=== PATIENT | female | born 1985 | race Caucasian/White ===

== ENCOUNTER 2023-06-12 14:37 | Outpatient (OUT) | payer BC, SELFPAY | END 2023-06-12 14:38 | disposition home or self-care (01) | LOC: LAB 06-17 14:37 | PROVIDERS: Visit Provider Obstetrics & Gynecology | DX: N92.0 Excessive and frequent menstruation with regular cycle (principal) | CPT/HCPCS: 88305 ==

== ENCOUNTER 2023-06-14 10:10 | Outpatient (OUT) | payer BC, SELFPAY ==
--- NOTE | 2023-06-14 10:13 | US_ITS ---
The [address] [address] Patient Name: VAL TAY MRN: [id number] date: 1985 Sex: F Assigned Patient Location: Current Patient Location: Accession/Order Number: [id number] Exam Date: 06/14/2023 10:15 Report Date: 06/16/2023 07:33 At the request of: MAKI POP Procedure: US pelvis w/ transvaginal EXAMINATION: US pelvis w/ transvaginal HISTORY: PCOS E28.2 COMPARISON: No relevant comparison available. FINDINGS: Transabdominal and transvaginal images The uterus is normal in size, contour and myometrial echotexture measuring 9.8 x 5 0.5 to 4.2 cm, anteverted. No focal myometrial mass. Areas of anechoic echogenicity in the cervix, nabothian cysts are favored. The endometrium measures 10.4 mm, normal. The right ovary is normal measuring 2.2 x 2.5 x 2.9 cm. Normal color and Doppler flow. Scattered areas of anechoic echogenicity measuring up to 1.6 cm, follicles and/or simple cysts The left ovary is normal measuring 2.9 x 2.8 x 1.3 cm. Normal color and Doppler flow. Scattered subcentimeter follicles US/US pelvis w/ transvaginal IMPRESSION: Normal ovarian morphology Electronically authenticated by: SHANA BRADY Date: 06/16/2023 07:33
[2023-06-14 10:58] LABS: Basophils Percent Auto 0.3 % (0.2-2.0); Eosinophils Absolute Auto 0.1 10^3/uL (0.0-0.7); Eosinophils Percent Auto 1.3 % (0.9-7.0); Hematocrit 35.4 % (36.0-48.0); Immature Granulocytes Abs Auto 0.02 10^3/uL (0.00-0.03); Immature Granulocytes Pct Auto 0.2 % (0.0-0.5); Lymphocytes Absolute Auto 1.2 10^3/uL (1.2-3.8); Lymphocytes Percent Auto 12.8 % (20.5-60.0); Mean Corpuscular HGB Conc 28.2 g/dL (29.9-35.2); Mean Corpuscular Hemoglobin 23.1 pg (26.7-34.0); Mean Corpuscular Volume 81.8 fL (81.0-99.0); Mean Platelet Volume 9.9 fL (9.5-13.5); Monocytes Absolute Auto 0.6 10^3/uL (0.3-0.8); Monocytes Percent Auto 6.5 % (1.7-12.0); Neutrophils Absolute Auto 7.6 10^3/uL (1.4-6.5); Neutrophils Percent Auto 78.9 % (43.0-75.0); Platelet Count 323 10^3/uL (150-450); Red Blood Count 4.33 10^6/uL (4.20-5.40); Red Cell Distribution Width 17.1 % (11.0-15.0); White Blood Count 9.6 10^3/uL (4.0-11.0)
[2023-06-14 11:13] LABS: Estimated Average Glucose 94 mg/dL; Glycohemoglobin A1C 4.9 % (4.5-6.2)
[2023-06-14 11:48] LABS: Free T4 0.88 ng/dL (0.76-1.46)
[2023-06-14 12:16] LABS: HCG Quantitative <1 mIU/mL
[2023-06-15 08:08] LABS: FSH 6.2 mIU/mL (.); Luteinizing Hormone(LH) 33.5 mIU/mL (.)
[2023-06-19 16:09] LABS: DHEA, Serum 137 ng/dL (31-701)
== END 2023-06-14 10:11 | disposition home or self-care (01) ==
LOC: US 10:10
PROVIDERS: Visit Provider Obstetrics & Gynecology
DX: E28.2 Polycystic ovarian syndrome (principal); D89.89 Other specified disorders involving the immune mechanism, not elsewhere classified
CPT/HCPCS: 36415; 76830; 76856; 82626; 82627; 83001; 83002; 83036; 84439; 84443; 84702; 85025

== ENCOUNTER 2025-03-20 07:37 | Emergency (ER) | payer OTHER, SELFPAY ==
--- OUTSIDE RECORDS SUMMARY | 2024-03-01 09:15 | XMS_ITS ---
Author Organization [facility] in [place] Address [address] [place] [address] Care Team Providers Care Strapper Name Role Phone Bailee Riojas Primary Care Provider REASON FOR VISIT Tele visit for anxiety/depression. Stopped paxil 1 month ago. Just stopped filling it Medications Medication SIG (Take, Route, Frequency, Duration) Notes Start Date End Date Status Diclofenac Sodium 75 MG 1 tablet Orally Twice a day; Duration: 30 days 08/22/2022ctiveHydroxychloroquine Sulfate 200 MGas directed OrallyActiveFerrous Sulfate 325 (65 Fe) MG1 tablet Orally Three times a Week; Duration: 30 days 12/02/2022ctiveErgocalciferol 1.25 MG (75080 UT)1 capsule OrallyActive Social History Tobacco Use: Social History Observation Description Date Details (start date - stop date) Former Smoker NA - 06/22/2022 Tobacco Use/Smoking Question Answer Notes Patient is a former smoker When did you stop smoking?06/22/2022UDIT-C (Standard) Question Answer Notes Did you have a drink containing alcohol in the p ast year? Yes How often did you have six or more drinks on one occasion in the past year?Never (0 point)How many drinks did you have on a typical day when you were drinking in the past year?1 or 2 drinks (0 point)How often did you have a drink containing alcohol in the past year?Monthly or less (1 point)Bvcoai7TpqipfrjrjgqkpUbxxryel Problems Problem Type SNOMED Code ICD Code Onset Dates Problem Status W/U Status Risk Notes Problem Mixed anxiety and de pressive disorder ([id number]) Anxiety and depression (F41.8) Activeconfirmed Encounters Encounter Location Date Provider Diagnosis [facility] [address] [place] [address] 03/01/2024 Bailee Riojas Anxiety and depression F41.8 Assessments Encounter Date Diagnosis (ICD Code) Assessment Notes Treatment Notes Treatment Clinical Notes Section Notes 03/01/2024 Anxiety and depression (ICD-10 - F41.8) Plan Of Treatment No Information Progress Notes * Sue WILLARD LDOB:[birth year] (39 yo F)Acc No.[id number]:03/01/2024 UNLOCKED PROGRESS NOTE Progress Note Patient: Sue GARCIA :?Bailee Riojas ([facility]), CNPDOB:1985 ???Age:38 Y???Sex:FemaleDate:03/01/2024hone:[phone]:[address] [place], [place]-[address] Subjective: * Chief Complaints: * 1 . Tele visit for anxiety/depression. Stopped paxil 1 month ago. Just stopped filling it. * HPI: ???General:? mom has cancer homeless now, living with co worker and brother house working at [employer]. * Medical History: O ther cough, COVID-19 virus infection, History of kidney stones, Dysuria, Kidney stones, Wellness examination, Pleurisy, Other specified arthritis, unspecified site, Acute chest wall pain, Pneumonia, Shingles, Cigarette smoker, Hypertension, Allergic conjunctivitis, bilateral, Hypokalemia, Other specified postprocedural states, Narcotic dependence, in remission, Non-neuropathic heredofamilial amyloidosis. * Surgical History: C section/Fallopian tubes removed , Kidney stone removal . * Hospitalization/Major Diagno stic Procedure: d enies . * Family History: F ather: alive 62 yrs. M other: alive 57 yrs, LUNG CANCER. B rother(s): alive. S ister(s): alive. S on(s): alive. D aughter(s): alive, arthritis. 2 brother(s) , 1 sister(s) - healthy. 1 son(s) , 2 daughter(s) - healthy. . * Social History: ???Tobacco Use:?Tobacco Use/Smoking?Patient is a?former smoker ?When did you stop smoking??06/22/2022 ???Drug/Alcohol:?AUDIT-C (Standard)?Did you have a drink containing alcohol in the past year??Yes ?How often did you have six or more drinks on one occasion in the past year??Never (0 point) ?How many drinks did you have on a typical daywhen you were drinking in the past year??1 or 2 drinks (0 point) ?How often did you have a drink containing alcohol in the past year?? Monthly or less (1 point) ?Points?1 ?Interpretation?Negative * Medications: T aking Diclofenac Sodium 75 MG Tablet Delayed Release 1 tablet Orally Twice a day , Taking Ergocalciferol 1.25 MG (11677 UT) Capsule 1 capsule Orally , Taking Ferrous Sulfate 325 (65 Fe) MG Tablet 1 tablet Orally Three times a Week , Taking Hydroxychloroquine Sulfate 200 MG Tablet as directed Orally , Discontinued Amoxicillin-Pot Clavulanate 875-125 MG Tablet 1 tablet Orally every 12 hrs , Discontinued Benzonatate 200 MG Capsule 1 capsule as needed Orally Three times a day , Discontinued predniSONE 20 MG Tablet 2 tablet Orally Once a day , Medication List reviewed and reconciled with the patient Objective: * Vitals: Assessment: * Assessment: 1.?Anxiety and depression - F41.8 (Primary)??? Plan: * Treatment: * * Electronic signature of Bailee Riojas NP, FOOD PRODUCTION MANAGER.UNDERCOVER [id number] on 03/20/2025 at 08:10 AM ESTSign off status: PendingVisit Status:?N/S N/C (No Show/No Charge) * Provider: Faviola Riojas ([facility]) UNDERCOVER AGENT Date: 05/02/2023 Generated for Printing/Faxing/eTransmitting on:?03/20/2025 08:10 AM EST History and Physical Notes * HPI (History of Present Illness) CategorySub-CategoryDetailNotesCategory NotesGeneral mom has cancer homeless now, living with co worker and brother house working at [employer] denies SI
--- OUTSIDE RECORDS SUMMARY | 2025-03-09 05:11 | XMS_ITS | Continuity of Care Document ---
Author Organization [facility] Address [address] [place] [address] Phone Care Team Providers Care Manager Work Name Role Phone Rodo Tomlin Unavailable Unavailab le Allergies, Adverse Reactions, Alerts Substance Reaction Status Criticality No Known Allergies Active No Inform ation Medications Medication Instructions Dosage Effective Dates (start - stop) Status Comments trazodone 50 mg tablet take 1 tablet by oral route every day after meals 50 MG - Active ferrous sulfate 325 mg (65 mg iron) tablet take 1 tablet by oral route every day 325 MG - Active Remeron 15 mg tablet take 1 tablet by or al route every day before bedtime 15 MG - Active Vivitrol 380 mg intramuscular suspension,extended release inject 4 milliliter by intramuscular route every 4 weeks 380 MG - Active F10.20 duloxetine 60 mg capsule,delayed release take 1 capsule by oral route every day 60 MG - Active naltrexone 50 mg tablet take 1 tablet by oral route every day 50 MG - Active propranolol 10 mg tablet take 1 tablet by oral route 2 times every day 10 MG - Active Procedures Procedure Date OFFICE/OUTPATIENT VISIT, EST DIAST BP> = 90 MM HG SYST BP >=130-139MM HG MED LIST DOCD IN [facility] RVW MEDS BY RX/DR IN [facility] Tobacco User Not Consuled Pt inelig neg scrn depres OFFICE/OUTPATIENT VISIT, EST Bp scrn perf rec interval DIAST BP < 80 MM HG SYST BP >=130-139MM HG MED LIST DOCD IN [facility] RVW MEDS BY RX/DR IN [facility] PT TOBACCO USE DONE RCVD TLK Pt inelig neg scrn depres DRUG TEST PRSMV DIR OPT OBS Injection, Vivitrol Naltrexone, 1mg PSYTX PT&/FAMILY 60 MINUTES PSYTX PT&/FAMILY 60 MINUTES PSYTX PT&/FAMILY 60 MINUTES PSYTX PT&/FAMILY 60 MINUTES OFFICE/OUTPATIENT VISIT, NEW Bp scrn perf rec interval DIAST BP < 80 MM HG SYST BP < 130 MM HG MED LIST DOCD IN [facility] RVW MEDS BY RX/DR IN [facility] Tobacco User Not Consuled Pt inelig neg scrn depres Injection, Vivitrol Naltrexone, 1mg DRUG TEST PRSMV DIR OPT OBS PSYTX PT&/FAMILY 60 MINUTES PSYTX PT&/FAMILY 60 MINUTES ROUTINE VENIPUNCTURE ROUTINE VENIPUNCTURE OFFICE/OUTPATIENT VISIT, EST PSYTX PT&/FAMILY 60 MINUTES PSYTX PT&/FAMILY 60 MINUTES Depo Provera 1 Ml PREV VISIT, EST, AGE 18-39 Bp scrn perf rec interval DIAST BP < 80 MM HG SYST BP < 130 MM HG MED LIST DOCD IN [facility] RVW MEDS BY RX/DR IN [facility] PT TOBACCO USE DONE RCVD TLK Oral Hygiene Instruction Extract; Erupted Th/exposted Rt 025 Intraoral-complete Series (bw) Oral Hygiene Instruction Prophylaxis Adult High Risk Nutrit Couns For Control Of Bonesteel Dis Apr Oral Hygiene Instruction Comp Oral Eval New/estab Patient 2023 Resin Composite 2s; Posterior 4 Intraoral-periapical 1st Film 4 Bitewig-single Film Oral Hygiene Instruction Limited Oral Eval NEW MEDICAID SPECIMEN HANDLING URINE TEST Advance Directives Directive Yes / No Effective Date File Name No Information Encounters Encounter Description Practice Location Reason(s) For Visit Diagnoses Date Provider Providers Copied on Encounter [facility], [address] [place] [address], [id number] , [place] tel:[phone] [facility] [place] [facility] [place] No Information 5 Andrade Koehler. [address] [place] [address], [id number] , [place]. tel:+ [phone] OFFICE/OUTPA TIENT VISIT, [facility], [address] [place] [address], [id number] , [place] tel:+ [phone] [facility] contraception (chief complaint) Body mass index [BMI] 25.0-25.9, adultEncounter for management and injection of depo-ProveraBod y mass index [BMI] 26.0-26.9, adult Jan- 5 Evert Natarajan. [address] [place] [address], [id number] , [place]. tel:+ [phone] OFFICE/OUTPA TIENT VISIT, [facility], [address] [place] [address], [id number] , [place] tel: [phone] [facility] Crystal # 2 (chief complaint) Body mass index [BMI] 23.0-23.9, adultSevere alcohol use disorder Oct- 5 Plank DO Bernardino. [address] [place] [address], [id number] , [place]. tel: [phone] PSYTX PT&/FAMILY 60 MINUTES [facility], [address] [place] [address], [id number] , [place] tel: [phone] [facility] Generalized Anxiety Disorder Oct-1 0- 5 Warren BAUERW-S [place]. [address] [place] [address], [id number], [place]. tel: [phone] PSYTX PT&/FAMILY 60 MINUTES [facility], [address] [place] [address], [id number] , [place] tel: [phone] [facility] Generalized Anxiety Disorder Oct-0 5 Warren [employer] TE[employer]ER-S [place]. [address] [place] [address], [id number], [place]. tel: [phone] PSYTX PT&/FAMILY 60 MINUTES [facility], [address] [place] [address], [id number] , [place] tel: [phone] [facility] Generalized Anxiety Disorder Sep-2 5 Warren [employer] TE[employer]ER-S [place]. [address] [place] [address], [id number], [place]. tel: [phone] PSYTX PT&/FAMILY 60 MINUTES [facility], [address] [place] [address], [id number] , [place] tel: [phone] [facility] Generalized Anxiety Disorder Sep-1 5 Warren [employer] TE[employer]ER-S [place]. [address] [place] [address], [id number], [place]. tel: [phone] OFFICE/OUTPA TIENT VISIT, [facility], [address] [place] [address], [id number] , [place] tel: [phone] [facility] Vivitrol (chief complaint)UDS (chief complaint)Katie trol Injection (chief complaint) Severe alcohol use disorderModerat e opioid use disorderBody mass index [BMI] 22.0-22.9, adultFood insecurity Sep-1 - 5 Adriana Contreras. [address], [place], [id number] , [place]. tel:+ [phone] [facility], [address] [place] [address], [id number] , [place] tel: [phone] [facility] No Information Sep-1 0- 5 Andrade Koehler. [address], [place], [id number] , [place]. 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 [address] [place] [address], [id number], [place]. tel: [phone] PSYTX PT&/FAMILY 60 MINUTES [facility], [address] [place] [address], [id number] , [place] tel: [phone] Behavorial Health Generalized Anxiety Disorder Sep-0 5 [facility] Bernard[place]. [address] [place] [address], [id number], [place]. tel: [phone] [facility], [address] [place] [address], [id number] , [place] tel:+ [phone] [facility] [place] [facility] [place] No Information Sep-0 5 Andrade Koehler. [address] [place] [address], [id number] , [place]. tel: [phone] [facility], [address] [place] [address], [id number] , [place] tel:+ [phone] [facility] Lab draw (chief complaint) Severe alcohol use disorderFood insecurity Sep-0 - 5 Andrade Koehler. [address] [place] [address], [id number] , [place]. tel: [phone] OFFICE/OUTPA TIENT VISIT, EST [facility], [address] [place] [address], [id number] , [place] tel: [phone] [facility] Sick visit (chief complaint)depr ession (chief complaint)URI (chief complaint) Body mass index [BMI] 21.0-21.9, adultDepression Severe alcohol use disorderHot flashesAcute URI 5 nAdrade Koehler. [address] [place] [address], [id number] , [place]. tel: [phone] PSYTX PT&/FAMILY 60 MINUTES [facility], [address] [place] [address], [id number] , [place] tel: [phone] [facility] Depression 5 Warren Lebron. [address] [place] [address], [id number], [place]. tel: [phone] PSYTX PT&/FAMILY 60 MINUTES [facility], [address] [place] [address], [id number] , [place] tel: [phone] [facility] Depression 5 Warren Lebron. [address] [place] [address], [id number], [place]. tel: [phone] PREV VISIT, EST, AGE 18-39 [facility], [address] [place] [address], [id number] , [place] tel: [phone] [facility] annual exam (chief complaint) Encounter for gynecological examination (general) (routine) without abnormal findingsEncount er for screening for HPV- STD High risk heterosexual behavior- STD screenBody mass index [BMI] 21.0-21.9, adultEncounter for management and injection of depo-ProveraBod y mass index [BMI] 22.0-22.9, adult 5 Evert RONAN Natarajan. [address] [place] [address], [id number] , [place]. tel: [phone] [facility], [address] [place] [address], [id number] , [place] tel: [phone] Dental Clinic Encounter for screening for dental disorders 5 Noe ESPITIA Yu. . tel: [phone] [facility], [address] [place] [address], [id number] , [place] tel: [phone] Dental Clinic Encounter for screening for dental disorders 4 Noe DDS Yu. . tel: [phone] [facility], [address] [place] [address], [id number] , [place] tel: [phone] Dental Clinic Filling (chief complaint) Encounter for screening for dental disorders 4 [facility] OMKAR Yu. . tel: [phone] [facility], [address] [place] [address], [id number] , [place] tel: [phone] Dental Clinic ER (chief complaint) Encounter for screening for dental disorders 4 [facility] . tel: [phone] [facility], [address] [place] [address], [id number] , [place] tel: [phone] [facility] No Information 1 Marcus Andrew. [address] [place] [address], [id number] , [place]. tel: [phone] Family History Family Member Type Diagnosis Age At Onset Mother Problem Alive and well Father Problem Alive and well Payers Payer name Insurance type Covered democrat ID Authoriza timatthew(s) Medel Medicaid [facility] [id number] Medicaid Wrap - [facility] [id number] Social History Type Description Quantity Date Captured Comments Sex Female Smoking Status No Information Sexual Orientation Straight or heterosexual Gender Identity Female Chief Complaint And Reason For Visit No Information Reason For Referral Reason For Referral No Information Plan Of Treatment Date Type Action Status Goal Unhealthy drug use screening . Due on due Goal Hep A. Due on du e Goal HPV. Due on due Goal Tdap. Due on due Goal RLP. Due on due Goal Influenza vaccine. Due on No due Goal Hepatitis C screening. Due o n due Goal Depression screening. Due on due Goal PRAPARE ASSESSMENT. Due on N due Goal Tdap Vaccine. Due on 2024 due Goal Dietary manageme nt education, guidance, and counseling completed Goal Hep A. Due on du e Goal Tdap. Due on due Goal Influenza vaccine. Due on Oc due Goal Tdap Vaccine. Due on 2024 due Goal RLP. Due on due Goal Unhealthy drug use screening . Due on due Goal Depression screening. Due on due Goal PRAPARE ASSESSMENT. Due on O due Goal Hepatitis C screening. Due o n due Goal HPV. Due on due Goal Lifestyle education regardin g diet completed Goal Tobacco cessation counseling completed Goal RLP. Due on due Goal HPV. Due on due Goal Influenza vaccine. Due on Oc due Goal Tdap Vaccine. Due on 2024 due Goal Tdap. Due on due Goal Unhealthy drug use screening . Due on due Goal Hepatitis C screening. Due o n due Goal Depression screening. Due on due Goal PRAPARE ASSESSMENT. Due on O due Goal Depression screening. Due on due Goal Hep A. Due on du e Goal Tdap Vaccine. Due on 2024 due Goal Unhealthy drug use screening . Due on due Goal PRAPARE ASSESSMENT. Due on O due Goal Hepatitis C screening. Due o n due Goal RLP. Due on due Goal Tdap. Due on due Goal Influenza vaccine. Due on Oc due Goal HPV. Due on due Goal Tdap. Due on due Goal Depression screening. Due on due Goal Hep A. Due on du e Goal PRAPARE ASSESSMENT. Due on S due Goal Hepatitis C screening. Due o n due Goal HPV. Due on due Goal Tdap Vaccine. Due on 2024 due Goal Influenza vaccine. Due on Se due Goal RLP. Due on due Goal Unhealthy drug use screening . Due on due Goal Hepatitis C screening. Due o n due Goal RLP. Due on due Goal Depression screening. Due on due Goal PRAPARE ASSESSMENT. Due on S due Goal Tdap. Due on due Goal Unhealthy drug use screening . Due on due Goal Influenza vaccine. Due on due Goal Hep A. Due on du e Goal Tdap Vaccine. Due on 2024 due Goal HPV. Due on due Goal Hep A. Due on du e Goal PRAPARE ASSESSMENT. Due on S due Goal Hepatitis C screening. Due o n due Goal Unhealthy drug use screening . Due on due Goal RLP. Due on due Goal Tdap Vaccine. Due on 2024 due Goal Influenza vaccine. Due on due Goal Tdap. Due on due Goal Depression screening. Due on due Goal HPV. Due on due Goal Lifestyle education regardin g diet completed Goal Influenza vaccine. Due on due Goal RLP. Due on due Goal Tdap Vaccine. Due on 2024 due Goal Tdap. Due on due Goal HPV. Due on due Goal Unhealthy drug use screening . Due on due Goal PRAPARE ASSESSMENT. Due on S ep due Goal Depression screening. Due on due Goal Hepatitis C screening. Due o n due Goal Influenza vaccine. Due on Se due Goal PRAPARE ASSESSMENT. Due on S ep due Goal Tdap. Due on due Goal Depression screening. Due on due Goal Unhealthy drug use screening . Due on due Goal Hepatitis C screening. Due o n due Goal RLP. Due on due Goal Tdap Vaccine. Due on 2024 due Goal HPV. Due on due Goal Hep A. Due on du e Goal Hepatitis C screening. Due o n due Goal Influenza vaccine. Due on Se due Goal HPV. Due on due Goal Tdap. Due on due Goal PRAPARE ASSESSMENT. Due on S due Goal Tdap Vaccine. Due on 2024 due Goal Unhealthy drug use screening . Due on due Goal Depression screening. Due on due Goal RLP. Due on due Goal Hep A. Due on du e Goal Influenza vaccine. Due on Se due Goal PRAPARE ASSESSMENT. Due on S due Goal Hepatitis C screening. Due o n due Goal Tdap Vaccine. Due on 2024 due Goal RLP. Due on due Goal HPV. Due on due Goal Tdap. Due on due Goal Unhealthy drug use screening . Due on due Goal Depression screening. Due on due Goal Hepatitis C screening. Due o n due Goal PRAPARE ASSESSMENT. Due on A due Goal Depression screening. Due on due Goal Influenza vaccine. Due on due Goal RLP. Due on due Goal Unhealthy drug use screening . Due on due Goal HPV. Due on due Goal Tdap Vaccine. Due on 2024 due Goal Tdap. Due on due Goal Dietary manageme nt education, guidance, and counseling completed Goal Tobacco cessation counseling completed Goal Tdap. Due on due Goal Unhealthy drug use screening . Due on due Goal PRAPARE ASSESSMENT. Due on A due Goal Hepatitis C screening. Due o n due Goal Tdap Vaccine. Due on 2024 due Goal HPV. Due on due Goal Influenza vaccine. Due on due Goal Depression screening. Due on due Goal RLP. Due on due Goal Hep A. Due on du e Goal RLP. Due on due Goal Depression screening. Due on due Goal Influenza vaccine. Due on due Goal PRAPARE ASSESSMENT. Due on A due Goal HPV. Due on due Goal Hepatitis C screening. Due o n due Goal Tdap Vaccine. Due on 2024 due Goal Unhealthy drug use screening . Due on due Goal Tdap. Due on due Goal Tdap. Due on due Goal Influenza vaccine. Due on due Goal RLP. Due on due Goal Hepatitis C screening. Due o n due Goal HPV. Due on due Goal PRAPARE ASSESSMENT. Due on A due Goal Depression screening. Due on due Goal Unhealthy drug use screening . Due on due Goal Tdap Vaccine. Due on 2024 due Goal Tobacco cessation counseling completed Goal Dietary manageme nt education, guidance, and counseling completed Goal Hep A. Due on du e Goal Depression screening. Due on due Goal Hepatitis C screening. Due o n due Goal Tdap. Due on due Goal PRAPARE ASSESSMENT. Due on due Goal Tdap Vaccine. Due on 2023 due Goal HPV. Due on due Goal RLP. Due on due Goal Influenza vaccine. Due on due Goal Unhealthy drug use screening . Due on due Goal PRAPARE ASSESSMENT. Due on due Goal Unhealthy drug use screening . Due on due Goal RLP. Due on due Goal Hepatitis C screening. Due o n due Goal Influenza vaccine. Due on due Goal HPV. Due on due Goal Depression screening. Due on due Goal Tdap. Due on due Goal Tdap Vaccine. Due on 2023 due Goal Tdap. Due on due Goal Hepatitis C screening. Due o n due Goal Unhealthy drug use screening . Due on due Goal PRAPARE ASSESSMENT. Due on due Goal RLP. Due on due Goal Hep A. Due on du e Goal Tdap Vaccine. Due on 2023 due Goal Influenza vaccine. Due on due Goal Depression screening. Due on due Goal HPV. Due on due Appointment Sue Willard BOOKED History Of Present Illness Encounter Date Complaint History Of Prese nt Illness contraception Discussed contra ception with client. The client is currently using tubal ligation. The client is not currently . Comments: Wilmer abdi is here for Depo Provera. Doing well and desires to continue at this time. Does not desire a in the near future. Crystal # 2 Pt here for Katie trol # 2 in Rt Side. Denies cravings and DOC is ETOH. Has 82 days sober. Sees Collins here for counseling. UDS neg all subs and patient is on the depo for B.C.RWeidmanLPNPt rec Crystal # 2 in RUOG. 380 mg vivitrol in RUOG using 1.5 needle. No blood on aspiration. Pt tolerated well.Kit Lot [id number] 05/22/2027Vial [id number] 05/22/2027 UDS Slight line for THC deemed negative, negative all other substances.//ALBANIA Doshi Vivitrol Patient is here for first vivitrol injection. Patient states DOC was ETOH, last used October 13, 2024. Patient denies cravings. Attends counseling here and at [place]. Patient had tubal ligation and receives depo. Patient denies other concerns at this time. Patient admits to vaping daily. Denies use of tobacco, alcohol, and drugs.//ALBANIA Doshi Vivitrol Injection 380 mg Vivitr ol given IM LUOQ LG using a 1 1/2 needle. No blood on aspiration, patient tolerated well.//ALBANIA Doshi Lab draw Presents for lab draw. Lab draw from right AC x 1 attempt, tolerated well, pressure dressing to area. Noa Giang RN Sick visit Patient presents for sick visit. Patient notes her symptoms started yesterday morning. C/o sore throat, itchy/dry cough, headache. Patient wants strep swab. Wants thyroid checked - [facility] [place].Currently at [facility] and attending counseling for alcohol use disorder. Taking Naltrexone daily, plans to start Vivitrol via [facility]. Believes medicatio is working well. While drawing labs for vivitrol would also like to have TSH checked as she has experienced hot flashes recently. Geo HICKMAN depression This is an initi al visit. Related symptoms are fairly controlled. The client presents with anxious/fearful thoughts and depressed mood but denies thoughts of or suicide. The depression is aggravated by alcohol use. The client's relieving factors are medication. Additional information: would like refill with no dosage changes Geo HICKMAN. URI The symptoms beg an 1 day ago. The symptoms have remained unchanged. The client presents with cough, pharyngitis and rhinorrhea. Risk factors include sick contacts (longterm). The client denies any aggravating factors. Interventions that have been tried have not provided any relief. The illness is associated with malaise. The client denies dyspnea, neck stiffness and rash. Additional information: Geo HICKMAN. annual exam Currently pregna nt: no. : 3. Parity: Term: 2. Pre-Term: 1. Livin.Client is not contemplating . The client states using tubal ligation for control. Last LMP was 10/24/2024. Patient's menses is regular with normal flow with a frequency of every 28 days. Negative for dysmenorrhea and menorrhagia. Negative for: breast discharge, breast lump(s), breast pain and breast self exam. Menopausal symptoms positive for: night sweats. The client does use tobacco. Tobacco cessation has been discussed. The client formerly drank alcohol. Additional information: Patient is here for annual exam. She is currently living at [facility] for 1 week as she has recently gotten herself sober from alcohol. States she had her 5yr child taken away and she was melody drinking. She gets hot flashes, but her cycles come monthly. States her mother went through menopause in her late 30's early 40's. She is interested in trying Depo Provera to see if some of her symptoms resolve. she is a smoker and cannot take combination BCM. Filling Continue with zion roberts ER Functional Status Date Functional Assessmen t No Information Instructions Date Instruction Additional Infor javier May continue Depo Pr overa. Encouraged calcium 1000mg QD. Recommend condoms for back up BC and to prevent STDs Related to Encounter for management and injection of depo-Provera Dietary management e ducation, guidance, and counseling Related to Body mass index [BMI] 25.0-25.9, adult Giving encouragement to exercise Related to Body mass index [BMI] 25.0-25.9, adult Lifestyle education regarding di et Related to Body mass index [BMI] 23.0-23.9, adult Giving encouragement to exercise Related to Body mass index [BMI] 23.0-23.9, adult Lifestyle education regarding di et Related to Body mass index [BMI] 22.0-22.9, adult Giving encouragement to exercise Related to Body mass index [BMI] 22.0-22.9, adult 1. Rest and hydrateP ush fluids2. Medications:OTC medications for symptoms form list approved by [employer]3. Follow up in 1 week if symptoms have not improved4. Seek immediate medical attention for chest pain or shortness of breath.5. Avoid smoking and or cigarette smoke6. bland well balanced diet Related to Acute URI 1. Continue with cou nseling as required2. Follow up 2 WEEKS, MAY RETURN SOONER IF INJECTION ARRIVES SOONE3. [facility] with any issues prior to next appointment4. Avoid any drug or alcohol use5. Practice good sleep hygiene6. Well balanced diet7. Exercise 3-5 days per week 30 minutes per day8. YOU ARE AT INCREASED RISK FOR OVERDOSE WITH OPIATE USE WHILE ON VIVITROL9. Please wear your Vivitrol medical alert bracelet of dog tag at all times. Related to Severe alcohol use disorder 1. thyroid labs prio r to 10am2. Will contact with results Related to Hot flashes 1. Take medications as prescribed.2. Continue or consider counseling3. Exercise regularly4. practice good sleep hygiene.5. Well balanced healthy diet6. CALL [phone] FOR SUICIDAL OR HOMICIDAL THOUGHTS7. Follow up: 3 month(s)8. Avoid alcohol and drug use Related to Depression Giving encouragement to exercise Related to Body mass index [BMI] 21.0-21.9, adult Dietary management e ducation, guidance, and counseling Related to Body mass index [BMI] 21.0-21.9, adult May continue Depo Pr overa. Encouraged calcium 1000mg QD. Recommend condoms for back up BC and to prevent STDs Related to Encounter for management and injection of depo-Provera May continue Depo Pr overa. Encouraged calcium 1000mg QD. Recommend condoms for back up BC and to prevent STDs Related to - STD screen Encouraged good diet marta intake, exercise and healthy lifestyle choices. Recommend daily multi-vitamin with Folic acid. Understands the need for non-violent partners in a consensual relationship. Patient does not desire a in the near future. Reviewed control options for prevention and desires to continue using BTL for prevention of . Does want to try Depo Provera to see if it will help with hot flashes. Related to Encounter for gynecological examination (general) (routine) without abnormal findings Dietary management e ducation, guidance, and counseling Related to Body mass index [BMI] 21.0-21.9, adult Assessments Type Assessment Date No Information Patient Care Teams Name Effective Dates (start - stop) Status Members No Information
[2025-03-20 07:41] VITALS: BP 144/93; PULSE 139; TEMP 37.3; O2SAT 97; BMI 25.6
[2025-03-20 07:47] VITALS: PULSE 115
[2025-03-20 07:50] VITALS: PULSE 115
--- OUTSIDE RECORDS SUMMARY | 2025-03-20 08:09 | XMS_ITS | Patient Health Record ---
Author Organization [facility] in [place] Address [address] [place] [address] Care Team Providers Care Sign Painter Apprentice Name Role Phone Bailee Riojas Primary Care Provider [phone] Allergies No Known Allergies Reason For Referral No Information Medications Medication SIG (Take, Route, Frequency, Duration) Notes Start Date End Date Status Amoxicillin-Pot Clavulanate 875-125 MG 1 tablet Orally every 12 hrs; Duration: 10 days 5ActiveCymbalta 60 MG1 capsule Orally Once a dayActivebusPIRone HCl 10 MG1 tablet Orally Twice a dayActiveHydroxychloroquine Sulfate 200 MGas directed OrallyActivehydrOXYzine HCl 25 MGTAKE 1 TABLET BY MOUTH TWICE A DAY NEEDED; Duration: 30ActiveBenzonatate 200 MG1 capsule as needed Orally Three times a day; Duration: 7 days5Active Social History Tobacco Use: Social History Observation Description Date Details (start date - stop date) Former Smoker NA - 06/22/2022 Tobacco Use/Smoking Question Answer Notes Patient is a former smoker When did you stop smoking?06/22/2022lcohol Screen (Audit-C) Question Answer Notes Did you have a drink containing alcohol in the p ast year? Yes How often did you have 6 or more drinks on one occasion in the past year?Never (0 point)How many drinks did you have on a typical day when you were drinking in the past year?1 or 2 drinks (0 point)How often did you have a drink containing alcohol in the past year?Monthly (2 points)Nrdopd8CjosmkwmqzyzagXycjplhgSYGHX-C (Standard) Question Answer Notes Did you have [...] in the past year?Monthly or less (1 point)Gyxlye4XcivecacwsywmeNdxmnzeq Problems Problem Type SNOMED Code ICD Code Onset Dates Problem Status W/U Status Risk Notes Problem Iron deficiency anemia (55754752 ) Iron deficiency anemia, unspecified (D50.9) 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 (42434834)Hypokalemia (E87.6)ActiveconfirmedProblemAllergic arthritis (32921178) Other specified arthritis, unspecified site (M13.80)ActiveconfirmedProblem Calculus of kidney (84409290)Calculus of kidney (N20.0)ActiveconfirmedProblem Pleurisy (861400061)Pleurisy (R09.1)ActiveconfirmedProblemDysuria (07729447) Dysuria (R30.0)ActiveconfirmedProblemHypertension (77306936)Hypertension (I10) ActiveconfirmedProblemCigarette smoker (56813575)Cigarette smoker (F17.210) ActiveconfirmedProblemPneumonia (602771425)Pneumonia (J18.9)Activeconfirmed ProblemHistory of calculus of kidney (644098707)History of kidney stones (Z87.442)ActiveconfirmedProblemShingles (9026383)Shingles (B02.9)Activeconfirmed ProblemAcute atopic conjunctivitis (91794378)Allergic conjunctivitis, bilateral (H10.13)ActiveconfirmedProblemSuicidal ideation (1385241)Suicidal ideation (R45.851)ActiveconfirmedProblemAnnual wellness visit (280124057943197)Wellness examination (Z00.00)ActiveconfirmedProblemMajor depressive disorder (728263461) Major depressive disorder (F32.9)ActiveconfirmedProblemChest pain (13863881) Acute chest wall pain (R07.89)ActiveconfirmedProblemCyst of right ovary (17277624902816447)Unspecified ovarian cyst, right side (N83.201)Activeconfirmed ProblemPostprocedural states (437573269)Other specified postprocedural states (Z98.890)ActiveconfirmedProblemMixed anxiety and depressive disorder (487946031) Anxiety and depression (F41.8)ActiveconfirmedProblemOpioid dependence in remission (707763728)Narcotic dependence, in remission (F11.21)Activeconfirmed ProblemDisease caused by Severe acute respiratory syndrome coronavirus 2 (disorder) (382648341)COVID-19 virus infection (U07.1)ActiveconfirmedProblem Cough (finding) (60194729)Other cough (R05.8)Activeconfirmed Vital Signs Temperature 98.2 degrees Fahrenheit 03/30/2024 Blood pressure vjasqkdwc39 mm Hg07/23/20249645Wfxbcq24 in07/23/2024lood pressure rstrqata567 mm Hg07/23/20243345Qfkbdq556 lbs07/23/2024BMI21.21 kg/m207/23/2024 Encounters Encounter Location Date Provider Diagnosis [facility] [address] [place] [address] 03/30/2024 Bailee Riojas [facility] [place] [address] 03/30/2024Pamela CramerAcute sinusitis J01.90[facility] [place] [address]/02/2025Pamela CramerBronchitis J40 Assessments Encounter Date Diagnosis (ICD Code) Assessment Notes Treatment Notes Treatment Clinical Notes Section Notes 03/30/2024 Acute sinusitis (ICD-10 - J01.90 ) 07/23/2024ronchitis (ICD-10 - J40) Plan Of Treatment Pending Test Test Name Order Date UA (URINALYSIS, COMPLETE) 12/12/2022 CT Chest w/o contrast 07/11/2022 URINE CULTURE 12/12/2022 C DIFF TOX PCR STOOL 12/12/2022 CBC W/AUTO DIFF 12/02/2022 COVID-19, Flu A+B IH 01/27/2024 Covid-19 PCR (CVDTBH) 11/10/2023 IRON 12/02/2022 STOOL CULTURE 12/12/2022 Insurance Providers Payer Name Payer Address Payer Phone Subscriber Number Group Number Insured Name Patient Relationship to Insured Coverage Start Date Coverage End Date [employer] [place] [employer] [address] [address] [place] [address] [phone] [id number] Sue Willard Self - patient is the insured 0 Medical (General) History Medical History History ICD Code Other cough R05.8 COVID-19 virus infection U07.1 History of kidney stones Z87.442 Dysuria R30.0 Kidney stones N20.0 Wellness examination Z00.00 Pleurisy R09.1 Other specified arthritis, unspecified s ite M13.80 Acute chest wall pain R07.89 Pneumonia J18.9 Shingles B02.9 Cigarette smoker F17.210 Hypertension I10 Allergic conjunctivitis, bilateral H10.1 3 Hypokalemia E87.6 Other specified postprocedural states Z9 8.890 Narcotic dependence, in remission F11.21 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
[2025-03-20 08:10] LABS: SARS-CoV-2 Ag NEGATIVE (NEGATIVE)
--- OUTSIDE RECORDS SUMMARY | 2025-03-20 08:10 | XMS_ITS | Encounter Summary ---
Author Organization [facility] Address [address] [place] [address] Care Team Providers Care Leaf Stripper Name Role Phone Bailee Riojas CNP Primary Care Provider + Source Comments In the event this information is protected by the Federal Confidentiality of Alcohol and Drug AbusePatient Records regulations: The Federal rules restrict any use of the information to criminally investigate or prosecute any alcohol or drug abuse patient.[facility] Reason for Visit * ReasonOnset DateCommentsRefill Likvqpm4203/16/2025 Encounter Details DateTypeDepartmentCare Team (Latest Contact Info)Dnpmsbyldjt16/24/2025Refill Rheumatology [address] [place] [address] Yanely Motta MD [address] [place] [address] Refill Request Social History Tobacco UseTypesPacks/DayYears UsedDateSmoking Tobacco: FormerCigarettes Smokeless Tobacco: Never Comments:Vapes occasionally Alcohol UseStandard Drinks/WeekCommentsNo0 (1 standard drink = 0.6 oz pure alcohol)PHQ-2AnswerDate RecordedPHQ-2 ycrxt154/30/2023Area Deprivation Index AnswerDate RecordedNational Score (1-100), lower number is lower risk83 02/20/2023State Score (1-10), lower number is lower mygw7713Data from: https://www.neighborhoodatlas.medicine.[facility].edu/. Last address used for prnwezguo[address]CommentsNoSex and Gender Information ValueDate RecordedSex Assigned at BirthNot on fileLegal BjdBbshuu08/02/2012 8:57 AM ESTGender IdentityNot on fileSexual OrientationNot on fileOccupationIndustry Job Start DateJob End DateCookNot on fileNot on fileNot on filedocumented as of this encounter Miscellaneous Notes * Telephone Encounter - Marlena Espinosa - 03/18/2025 9:24 AM EST Patient is scheduled with Dr Motta on 04/09/2025 * Telephone Encounter - Yanely Motta MD - 03/16/2025 6:08 PM EST Not seen since 05/2023. May schedule follow up phone/virtual or office visit with me or WARD ATTENDANT for refill. [facility] OFFER [facility] CLINIC (VIRTUAL/PHONE ONLY). 04/09/25 and 04/2025 open Otherwise, please defer medication refills to current provider Thank you. * Telephone Encounter - Mery Neff MA - 03/16/2025 9:08 AM EST Images from the original note were not included. Patient's request for medication is as follows: Requested Prescriptions Pending Prescriptions Disp Refills predniSONE (DELTASONE) 5 mg tablet 21 tablet 3 Sig: Day 1=6tabs with food, Day 2=5tabs, Day 3=4tabs, Day 4=3tabs, Day 5=2tabs, then take 1-2tabs daily thereafter, No NSAIDs on med I???m swollen so badly still I need prednisone to help me until I see you Apr 09 I made an appointment that was the earliest I could get in. Please Please approve the above prescription(s) to electronically send to pharmacy. Mery Neff MA Most recent Rheumatology visit: 06/02/2023 (with Yanely Motta) Last Bone Density on file: 12/24/2022 Rheumatology Care Team: None on file Recent Office Visits - This Specialty 06/02/2023 Rheumatoid arthritis of multiple sites with negative rheumatoid factor (HCC) Rheumatology Yanely Motta MD 11/11/2022 Rheumatoid arthritis of multiple sites with negative rheumatoid factor (HCC) Rheumatology Yanely Motta MD 05/03/2022 Rheumatoid arthritis of multiple sites with negative rheumatoid factor (HCC) Rheumatology Yanely Motta MD Upcoming Rheumatology Appointments - Next 365 Days Visit Type Date Time Department VIDEO SPEC EST [facility] Last Ophthalmology Check for Plaquenil (Hydroxychloroquine) Last OCT Macula Exam OCT MACULA CIRRUS OU (BOTH EYES) Exam End: 07/02/2021 10:17 AM (Final result) Narrative: Date of Procedure 07/02/2021. Interpretation Right Eye Normal without fluid. Left Eye Normal without fluid. Interval Change Right Eye Initial. Left Eye Initial. Last Visual Field Exam VISUAL FIELD 10-2 OU (BOTH EYES) Exam End: 07/02/2021 9:31 AM (Final result) Narrative: Date of Procedure 07/02/2021. Drivers License Examiner Information Heel Padder: Reliability Right Eye Good. Left Eye Good. Interpretation Right Eye Normal. Left Eye Normal. Interval Change Right Eye Initial. Left Eye Initial. CBC: Latest Ref Rng & Units 03/08/2024 03/08/2025 CBC WBC 3.70 - 11.00 k/uL 6.90 8.09 Hemoglobin 11.5 - 15.5 g/dL 10.8 14.0 Hematocrit 36.0 - 46.0 % 35.9 44.0 Platelet Count 150 - 400 k/uL 284 284 Vitamin D: Latest Ref Rng & Units 03/08/2024 03/08/2025 Vitamin D Vitamin D 25 Hydroxy 31.0 - 80.0 ng/mL 24.1 27.7 LFT: Latest Ref Rng & Units 03/08/2024 03/08/2025 CMP Sodium 136 - 144 mmol/L 142 139 Potassium 3.7 - 5.1 mmol/L 3.7 4.0 Chloride 98 - 107 mmol/L 105 103 CO2 22 - 30 mmol/L 25 25 Glucose 74 - 99 mg/dL 94 84 BUN 7 - 21 mg/dL 9 9 Creatinine 0.58 - 0.96 mg/dL 0.68 0.68 Calcium 8.5 - 10.2 mg/dL 9.8 9.8 AST 10 - 35 U/L 16 24 ALT 10 - 35 U/L 11 24 Alkaline Phosphatase 34 - 123 U/L 84 73 Hepatic Function: Creatinine: Latest Ref Rng & Units 03/08/2024 03/08/2025 Creatinine Creatinine 0.58 - 0.96 mg/dL 0.68 0.68 ESR/CRP: Latest Ref Rng & Units 03/08/2024 03/08/2025 ESR, WSR WSR 0 - 20 mm/hr 12 2 Latest Ref Rng & Units 03/08/2024 03/08/2025 CRP CRP <0.9 mg/dL 0.5 0.5 Uric Acid: None on file in the last 6 months Open Standing (Multiple Instance) Lab Orders None Open Future (Single Instance) Lab Orders Expected Expires Ordered COMPREHENSIVE METABOLIC PANEL [SQCMP] 06/07/25 03/09/26 03/09/25 Auth. provider: Yanely Motta MD Assoc. diagnoses: Elevated LFTs COMPLETE BLOOD COUNT [SQCBC] 06/07/25 03/09/26 03/09/25 Auth. provider: Yanely Motta MD Assoc. diagnoses: Anemia of chronic disease SEDIMENTATION RATE [SQWSR] 06/07/25 03/09/26 03/09/25 Auth. provider: Yanely Motta MD Assoc. diagnoses: Elevated sed rate, Elevated C-reactive protein (CRP) C-REACTIVE PROTEIN [SQCRP] 06/07/25 03/09/26 03/09/25 Auth. provider: Yanely Motta MD Assoc. diagnoses: Elevated sed rate, Elevated C-reactive protein (CRP) VITAMIN D 25 HYDROXY [SQVITD] 06/07/25 03/09/26 03/09/25 Auth. provider: Yanely Motta MD Assoc. diagnoses: Vitamin D deficiency documented in this encounter Plan of Treatment DateTypeDepartmentCare Team (Latest Contact Info)Yvfwjbbmxbq01/17/2026 11:40 AM [facility] [address] [place] [address] Yanely Motta MD [address] [place], [place] [phone] fu RA familial mediterrean fever elbow is oencvbj0306/07/2025 4:00 PM EDTResults Only Dee Dee [facility] Laboratory [address] [place], [place] [phone] LABSdocumented as of this encounter Visit Diagnoses Diagnosis Inflammatory arthritis Unspecified inflammatory polyarthropathy documented in this encounter Care Teams Team MemberRelationshipSpecialtyStart DateEnd Date Bailee Riojas CNP [address] [place] [address] PCP - GeneralInternal Fltvxxka47/9/20documented as of this encounter
--- OUTSIDE RECORDS SUMMARY | 2025-03-20 08:10 | XMS_ITS | Clinical Summary ---
Author Organization [facility] Address [address], [address] [place] [address] Care Team Providers Care Occupational Therapy Teacher Name Role Phone Bailee Riojas MUSIC EXECUTIVE - NUTRITIONAL CHEMIST Primary Care Provide r Allergies No known active allergies Medications MedicationSigDispense QuantityRefillsLast FilledStart DateEnd DateStatus tamsulosin (FLOMAX) 0.4 MG capsule Take 1 capsule by mouth daily 30 capsule 10/09/2020ctive Hyoscyamine Sulfate SL (LEVSIN/SL) 0.[address] 1 tablet under the tongue every 6 hours as needed (bladder spasms) 60 each ctive fluconazole (DIFLUCAN) 150 MG tablet Take 150 mg by mouth03/31/2020ctive hydroxychloroquine (PLAQUENIL) 200 MG tablet Take 250 mg by mouth dailyActive predniSONE (DELTASONE) 5 MG tablet TAKE 2 TABLETS BY MOUTH DAILY WITH BREAKFAST.10/16/2020ctive Active Problems ProblemNoted DateDiagnosed RfcrKfxhebapbhbmai87/17/2021heumatoid arthritis 10/07/2020Familial Mediterranean fever10/07/2020 coli /17/2021 Sepsis due to Escherichia coli with acute organ dysfunction and septic shock 10/07/2020 Social History Tobacco UseTypesPacks/DayYears UsedDateSmoking Tobacco: Every DayCigarettes0.510 Smokeless Tobacco: NeverAlcohol UseStandard Drinks/WeekCommentsYes0 (1 standard drink = 0.6 oz pure alcohol)rarelyCommentsNoSex and Gender Information ValueDate RecordedSex Assigned at BirthNot on fileLegal UfsSersfl02/10/2013 7:52 PM ESTGender IdentityNot on fileSexual OrientationNot on file Last Filed Vital Signs Vital SignReadingTime TakenCommentsBlood Aevsappy349/9108 8:50 AM EDT Xdews2787 8:50 AM INMLjekdkkgpzu76.4 ??C (97.5 ??F)10/24/2020 8:50 AM EDTRespiratory Zbnp0716 8:50 AM EDTOxygen Yivajlaybe11%10/24/2020 8:50 AM EDTInhaled Oxygen Concentration--Cnelmt53 kg (114 lb 9.6 oz)10/24/2020 6:15 AM ZDJXbfcgt054.5 cm (5' 2 )10/24/2020 6:15 AM EDTBody Mass Index20.9610/24/2020 6:15 AM EDT Plan of Treatment Not on file Medical Devices ImplantedTypeAreaManufacturerDevice IdentifierShelf Expiration DateModel / Serial / LotStent Uret 6fr L26cm Percflx Hydr+ Dbl Pgtl Thrd 2 Implanted:Qty: 1 [facility] 10[facility]07/2020 [facility]-WD08/04/[id number] / / [id number] Uret 6fr L26cm Percflx Hydr+ Dbl Pgtl Thrd 2 Implanted:Qty: 1 on 10/07/2020 [facility]-WD08/04/[id number] / / [id number] Insurance Advance Directives * Full Code (Latest Code Status on File) Date ActivatedDate InactivatedComments10/07/2020 4:29 PM10/09/2020 7:06 PM Care Teams Team MemberRelationshipSpecialtyStart DateEnd Date Bailee Riojas, MUSIC EXECUTIVE - NUTRITIONAL CHEMIST [address] [place] [address] PCP - General10/08/20
--- OUTSIDE RECORDS SUMMARY | 2025-03-20 08:10 | XMS_ITS | Encounter Summary ---
Author Organization [facility] Address [address] [place] [address] Care Team Providers Care Permit Coordinator Name Role Phone Bailee Riojas CNP Primary Care Provider + Source Comments In the event this information is protected by the Federal Confidentiality of Alcohol and Drug AbusePatient Records regulations: The Federal rules restrict any use of the information to criminally investigate or prosecute any alcohol or drug abuse patient.[facility] Encounter Details DateTypeDepartmentCare Team (Latest Contact Info)Rwnlubudqjr69/15/2025 Patient Msg Rheumatology [address] [place], [place] [phone] Yanely Mtota MD [address] [place], [place] [phone] Appointment Request Social History Tobacco UseTypesPacks/DayYears UsedDateSmoking Tobacco: FormerCigarettes Smokeless Tobacco: Never Comments:Vapes occasionally Alcohol UseStandard Drinks/WeekCommentsNo0 (1 standard drink = 0.6 oz pure alcohol)PHQ-2AnswerDate RecordedPHQ-2 spjbx51404/22/2022rea Deprivation Index AnswerDate RecordedNational Score (1-100), lower number is lower risk83 02/20/2023State Score (1-10), lower number is lower abyh7593Data from: https://www.neighborhoodatlas.medicine.[facility].edu/. Last address used for [address]3CommentsNoSex and Gender Information ValueDate RecordedSex Assigned at BirthNot on fileLegal EkkTjzgvy56/02/2012 8:57 AM ESTGender IdentityNot on fileSexual OrientationNot on fileOccupationIndustry Job Start DateJob End DateCookNot on fileNot on fileNot on filedocumented as of this encounter Plan of Treatment DateTypeDepartmentCare Team (Latest Contact Info)Snrcelgvmfi36/17/2026 11:[address] [facility] Rheumatology [address] [place] [address] Yanely Motta MD [address] [place], [place] [phone] fu RA familial mediterrean fever elbow is pvyczaf2806/07/2025 4:00 PM EDTResults Only Dee Dee [facility] [address] [place] [address] LABSdocumented as of this encounter Visit Diagnoses Not on filedocumented in this encounter Care Teams Team MemberRelationshipSpecialtyStart DateEnd Date Bailee Riojas CNP [address] [place] [address] PCP - GeneralInternal Zlniiqsk67/9/20documented as of this encounter
--- OUTSIDE RECORDS SUMMARY | 2025-03-20 08:10 | XMS_ITS | Encounter Summary ---
Author Organization [facility] Address [address] [place] [address] Care Team Providers Care Shellfish Manager Name Role Phone Bailee Riojas CNP Primary Care Provider + Source Comments In the event this information is protected by the Federal Confidentiality of Alcohol and Drug AbusePatient Records regulations: The Federal rules restrict any use of the information to criminally investigate or prosecute any alcohol or drug abuse patient.[facility] Encounter Details DateTypeDepartmentCare Team (Latest Contact Info)Jirbmhverhx87/15/2025Travel Social History Tobacco UseTypesPacks/DayYears UsedDateSmoking Tobacco: FormerCigarettes Smokeless Tobacco: Never Comments:Vapes occasionally Alcohol UseStandard Drinks/WeekCommentsNo0 (1 standard drink = 0.6 oz pure alcohol)PHQ-2AnswerDate RecordedPHQ-2 rrfxr27004/22/2022rea Deprivation Index AnswerDate RecordedNational Score (1-100), lower number is lower risk83 02/20/2023State Score (1-10), lower number is lower wtjk4673Data from: https://www.neighborhoodatlas.medicine.[facility].edu/. Last address used for [address]02/20/2023CommentsNoSex and Gender Information ValueDate RecordedSex Assigned at BirthNot on fileLegal JupUhsmqo05/02/2012 8:57 AM ESTGender IdentityNot on fileSexual OrientationNot on fileOccupationIndustry Job Start DateJob End DateCookNot on fileNot on fileNot on filedocumented as of this encounter Plan of Treatment DateTypeDepartmentCare Team (Latest Contact Info)Nawykggfmvv16/17/2026 11:40 AM ESTEmerson HospitaltanEllen[facility] Rhe[facility] [address] [place] [address] Yanely Motta MD [address] [address] fu RA familial mediterrean fever elbow is zamhzle0806/07/2025 4:00 PM EDTResults Only Dee Dee [facility] Laboratory [address] [place], [place] [phone] LABSdocumented as of this encounter Visit Diagnoses Not on filedocumented in this encounter Care Teams Team MemberRelationshipSpecialtyStart DateEnd Date Bailee Riojas, EXPELLER WORKER [address] [place] [address] PCP - GeneralInternal Fwsdnzyt35/9/20documented as of this encounter
--- OUTSIDE RECORDS SUMMARY | 2025-03-20 08:10 | XMS_ITS | Encounter Summary ---
Author Organization [facility] Address [address] [place] [address] Care Team Providers Care Video Games Storywriter Name Role Phone Bailee Riojas CNP Primary Care Provider + Source Comments In the event this information is protected by the Federal Confidentiality of Alcohol and Drug AbusePatient Records regulations: The Federal rules restrict any use of the information to criminally investigate or prosecute any alcohol or drug abuse patient.[facility] Encounter Details DateTypeDepartmentCare Team (Latest Contact Info)Jasfgdnozfs81/24/2025 Patient Msg Rheumatology [address] [place], [place] [phone] Yanely Motta MD [address] [place], [place] [phone] Appointment Request Social History Tobacco UseTypesPacks/DayYears UsedDateSmoking Tobacco: FormerCigarettes Smokeless Tobacco: Never Comments:Vapes occasionally Alcohol UseStandard Drinks/WeekCommentsNo0 (1 standard drink = 0.6 oz pure alcohol)PHQ-2AnswerDate RecordedPHQ-2 mzhzo85604/22/2022rea Deprivation Index AnswerDate RecordedNational Score (1-100), lower number is lower risk83 02/20/2023State Score (1-10), lower number is lower ehkv9823Data from: https://www.neighborhoodatlas.medicine.[facility].edu/. Last address used for [address]3CommentsNoSex and Gender Information ValueDate RecordedSex Assigned at BirthNot on fileLegal TawNbjtlj76/02/2012 8:57 AM ESTGender IdentityNot on fileSexual OrientationNot on fileOccupationIndustry Job Start DateJob End DateCookNot on fileNot on fileNot on filedocumented as of this encounter Plan of Treatment DateTypeDepartmentCare Team (Latest Contact Info)Yfsacvpgisp15/17/2026 11:40 AM [facility] Rheumatology [address] [place] [address] Yanely Motta MD [address] [place], [place] [address] fu RA familial mediterrean fever elbow is ufpcpzx0606/07/2025 4:00 PM EDTResults Only Dee Dee [facility] Laboratory [address] [place] [address] LABSdocumented as of this encounter Visit Diagnoses Not on filedocumented in this encounter Care Teams Team MemberRelationshipSpecialtyStart DateEnd Date Bailee Riojas CNP [address] [place] [address] PCP - GeneralInternal Kqffyxwq29/9/20documented as of this encounter
--- OUTSIDE RECORDS SUMMARY | 2025-03-20 08:10 | XMS_ITS | Encounter Summary ---
Author Organization [facility] Address [address] [place] [address] Care Team Providers Care Power Nut Runner Operator Name Role Phone Bailee Riojas CNP Primary Care Provider + Source Comments In the event this information is protected by the Federal Confidentiality of Alcohol and Drug AbusePatient Records regulations: The Federal rules restrict any use of the information to criminally investigate or prosecute any alcohol or drug abuse patient.[facility] Encounter Details DateTypeDepartmentCare Team (Latest Contact Info)Uwnfvnmdtbd13/19/2025 Patient Msg Rheumatology [address] [place] [address] Provider, Ccf appointment needed Social History Tobacco UseTypesPacks/DayYears UsedDateSmoking Tobacco: FormerCigarettes Smokeless Tobacco: Never Comments:Vapes occasionally Alcohol UseStandard Drinks/WeekCommentsNo0 (1 standard drink = 0.6 oz pure alcohol)PHQ-2AnswerDate RecordedPHQ-2 scrwr01404/22/2022rea Deprivation Index AnswerDate RecordedNational Score (1-100), lower number is lower risk83 02/20/2023State Score (1-10), lower number is lower jljx3193Data from: https://www.neighborhoodatlas.medicine.[facility].edu/. Last address used for dke[address]qrmzs[address] [place]3CommentsNoSex and Gender Information ValueDate RecordedSex Assigned at BirthNot on fileLegal GcdKyzfrp08/02/2012 8:57 AM ESTGender IdentityNot on fileSexual OrientationNot on fileOccupationIndustry Job Start DateJob End DateCookNot on fileNot on fileNot on filedocumented as of this encounter Plan of Treatment DateTypeDepartmentCare Team (Latest Contact Info)Hjfcjbzjtzt46/17/2026 11:40 AM [facility] Rheumatology [address] [place] [address] Yanely Motta MD [address] [place] [address] fu RA familial mediterrean fever elbow is fygpzmr5806/07/2025 4:00 PM EDTResults Only [place] [facility] Laboratory [address] [place], [place] [id number] LABSdocumented as of this encounter Visit Diagnoses Not on filedocumented in this encounter Care Teams Team MemberRelationshipSpecialtyStart DateEnd Date Bailee Riojas CNP [address] [place] [address] PCP - GeneralInternal Ygztitoa06/9/20documented as of this encounter
--- OUTSIDE RECORDS SUMMARY | 2025-03-20 08:10 | XMS_ITS | Clinical Summary ---
Author Organization [facility] Address [address] [place] [address] Care Team Providers Care Field Training Manager Name Role Phone Bailee Riojas CNP Primary Care Provider + Allergies Active AllergyReactionsCriticalityNoted DateCommentsSumatriptan Succinate Clvivruw19/24/2012 Medications MedicationSigDispense QuantityRefillsLast FilledStart DateEnd DateStatus acetaminophen (TYLENOL) 500 mg tablet Take 2 tablets by mouth every 4 hours as needed.ctive POTASSIUM CHLORIDE ORAL Take 1 Dose by mouth once daily.Active PARoxetine (PAXIL) 10 mg tablet Indications:AnxietyTake 2 tablets by mouth once daily. 60 tablet 4Active alendronate (FOSAMAX) 70 mg tablet Indications:Steroid-induced osteoporosisTake 1tab by mouth once a week on empty stomach with full glass of water. No food/drink or lying down for 45-60minutes after med. 12 tablet 4Active hydrOXYchloroQUINE (PLAQUENIL) 200 mg tablet Indications:Rheumatoid arthritis of multiple sites with negative rheumatoid factor (HCC),Long-term use of Plaquenil,Rash and nonspecific skin eruptionTake 1 tablet by mouth daily with breakfast. 90 tablet 4Active predniSONE (DELTASONE) 5 mg tablet Indications:Inflammatory arthritisDay 1=6tabs with food, Day 2=5tabs, Day 3=4tabs, Day 4=3tabs, Day 5=2tabs, then take 1-2tabs daily thereafter, No NSAIDs on med 21 tablet 5Active ergocalciferol 50,000 unit capsule (VITAMIN D2, DRISDOL) Indications:Vitamin D deficiency(take 1cap by mouth with food twice a week, ONE CAPSULE ON FRIDAY AND ONE ON FRIDAY) FOR A TOTAL OF 10 WEEKS.then once a week thereafter. 24 capsule 5Active ergocalciferol 50,000 unit capsule (VITAMIN D2, DRISDOL) Indications:Vitamin D deficiency(take by mouth with food twice a week, ONE CAPSULE ON FRIDAY AND ONE ON FRIDAY) FOR A TOTAL OF 8 WEEKS.then once a week thereafter. 20 capsule Discontinued Active Problems ProblemNoted DateDiagnosed DateBilateral wrist pain06/02/2023ilateral hand pain 06/02/2023ersonal history of (healed) other pathological /11/2024 Utrpzzz9706/02/2023Weight loss06/02/2023Lateral epicondylitis of left elbow 07/02/2021teroid-induced xeejkmmlsqem71/11/2022Vitamin D hzwkveotyq28/11/2022 Numbness and tingling in left hand07/02/2021Elevated sed rate12/14/2020levated C-reactive protein (CRP)12/14/2020igarette nicotine dependence without hsziebkuokjo31/23/2021hronic elbow pain, left12/14/2020ong-term use of Aiddqqexj60/23/2021Family history of ulcerative mnowntu2212/14/2020ontracture of elbow, left12/14/2020heumatoid arthritis of multiple sites with negative rheumatoid hdvrii5403/31/2020 Assessment & Plan (07/27/2020 2:31 PM EDT): Assessment: stable on Plaquenil, Prednisone and Rituxan with last infusion in May Follows with Dr. 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) PUD (peptic ulcer disease)06/10/2011Chronic pain of both knees03/22/2011 Inflammatory kougimhfw78/30/2011 Resolved Problems ProblemNoted DateDiagnosed DateResolved DateRheumatoid arthritis involving both knees with negative rheumatoid /ash and nonspecific skin iqojzhdw88/9128Hjopzrzt35 Encounters DateTypeDepartmentCare UqubPobrnmauqyc30/24/2025Refill Rheumatology [address] [place] [address] Yanely Motta MD Refill Itonrqx3703/16/2025 Patient Msg Rheumatology [address] [place] [address] Yanely Motta MD Appointment Yugubbd3903/11/2025 Patient Msg Rheumatology [address] [facility] [place] [place] [address] Provider, Ccf appointment yvwwsv9603/07/2025 Get Medical Advice Rheumatology [address] [place] [address] Yanely Motta MD Swollen left elbow03/07/20254031Hfdyxe27/15/2025 Patient Msg Rheumatology [address] [place] [address] Yanely Motta MD Appointment Requestfrom Last 3 Months Immunizations ImmunizationAdministration DatesNext Dueinfluenza (IIV3) vaccine, age 6 mo - 64 yr, trivalent (AFLURIA, FLULAVAL, FLUVIRIN, FLUZONE)02/20/2019influenza (IIV4) vaccine, age 6 mo - 64 yr, quadrivalent (AFLURIA, FLULAVAL, FLUZONE)12/24/2019 influenza (IIV4) vaccine, age 6 mo - 64 yr, quadrivalent, PF (AFLURIA, FLUARIX, FLULAVAL, FLUZONE)02/20/2019measles mumps rubella (MMR) vaccine (M-M-R II, PRIORIX)05/10/1999tetanus diphtheria pertussis (Tdap) vaccine, age 7+ yr (ADACEL, BOOSTRIX)02/20/2019 Family History Medical HistoryRelationCommentsNo Ocular DiseaseFatherulcerative colitisMaternal GrandmotherArthritisMotherOAHypertensionMotherNo Ocular DiseaseMotherAnesthesia ProblemsNo Family HistoryRelationStatusCommentsFatherMaternal GrandmotherMother Social History Tobacco UseTypesPacks/DayYears UsedDateSmoking Tobacco: FormerCigarettes Smokeless Tobacco: Never Tobacco Cessation:Counseling Given: Not Answered Comments:Vapes occasionally Alcohol UseStandard Drinks/WeekCommentsNo0 (1 standard drink = 0.6 oz pure alcohol)PHQ-2AnswerDate RecordedPHQ-2 tyink49804/22/2022rea Deprivation Index AnswerDate RecordedNational Score (1-100), lower number is lower risk83 02/20/2023State Score (1-10), lower number is lower opwr79604/22/2022ata from: https://www.neighborhoodatlas.medicine.[facility].edu/. Last address used for pmys[address] [facility]02/20/2023CommentsNoSex and Gender Information ValueDate RecordedSex Assigned at BirthNot on fileLegal OglHuixuz62/02/2012 8:57 AM ESTGender IdentityNot on fileSexual OrientationNot on fileOccupationIndustry Job Start DateJob End DateCookNot on fileNot on fileNot on file Last Filed Vital Signs Vital SignReadingTime TakenCommentsBlood Jxfhjzze776/7203 11:46 AM EDT Jgyrw757406/16/2023 11:46 AM COCHjtqqayjung47.4 ??C (97.6 ??F)06/16/2023 7:35 AM EDTRespiratory Zuda254106/02/2023 12:40 PM EDTOxygen Rjqkivlmir47%06/16/2023 7:35 AM EDTInhaled Oxygen Concentration--Yrpdvu89.4 kg (102 lb 4.7 oz)06/16/2023 7:35 AM PJVDzfcub389.5 cm (5' 2 )03/29/2021 11:38 AM ESTBody Mass Index18.71 03/29/2021 11:38 AM EST Plan of Treatment DateTypeDepartmentCare Team (Latest Contact Info)Obgmxnidrju03/17/2026 11:40 AM [facility] [address] [place] [address] Yanely Motta MD [address] [facility] [place] [address] fu RA familial mediterrean fever elbow is rcvbsbm5106/07/2025 4:00 PM EDTResults Only [place] Laboratory [address] [place] [address] LABSHealth MaintenanceDue DateLast DoneCommentsDepression Bkbsbvesx10/09/2005 Hepatitis B Vaccine (1 of 3 - 19+ 3-dose series)2005Cervical Cancer Jkzwlsojr58/09/2008HPV Vaccine (1 - 3-dose SCDM series)2013Covid-19 Vaccine ( season)2024Influenza Vaccine (#1)2024 12/24/2019, 02/20/2019, 02/20/2019DTaP,Tdap,Td Vaccine (3 - Td or Tdap) 9104/22/2018, 10/05/2010HIV EwkagklmjVqdiotpue62/18/2016, 11/11/2014 Hepatitis C PphxnzhgyCjmzunale74/11/2024, 11/11/2022, 05/10/2022, Additional history exists Procedures Procedure NamePriorityDate/TimeAssociated DiagnosisCommentsBLOOD TB SCREEN Adfmgak6103/08/2025 8:37 AM EST Screening-pulmonary TB VITAMIN B12 GPKCDZbmxlit53/16/2025 8:37 AM EST Vitamin B12 deficiency VITAMIN D 25 QBITPJRAitsilx64/16/2025 8:37 AM EST Vitamin D deficiency C-REACTIVE PROTEIN (CRP)Zviqilw3803/08/2025 8:37 AM EST Elevated sed rate Elevated C-reactive protein (CRP) SEDIMENTATION ZWCOWfvucik48/16/2025 8:37 AM EST Elevated sed rate Elevated C-reactive protein (CRP) COMPLETE BLOOD JJOARRfsafjv34/16/2025 8:37 AM EST Anemia of chronic disease COMPREHENSIVE METABOLIC RLVLYCnoeylf25/16/2025 8:37 AM EST Elevated LFTs HEPATITIS C ANTIBODY IA WITH GYXPRTMSMWEXQmejute06/11/2024 7:40 AM EDT Elevated LFTs HIV 1/2 COMBO WITH REFLEX TO PQKHBREFVWTXWYZGmlwqvs12/18/2016 11:31 AM EDT Inflammatory arthritis (HCC) FMF (familial Mediterranean fever) (HCC) Dermatitis Corticosteroid dependence (HCC) from Last 3 Months or Most Recently Relevant to Health Maintenance Results * BLOOD TB SCREEN (03/08/2025 8:37 AM EST)ComponentValueRef RangeTest Method Analysis TimePerformed AtPathologist SignatureTB Nil0.02<=8.00 IU/mL03/09/2025 1:19 PM [facility] LABTB1 Ag minus Nil0.05<0.35 IU/mL03/09/2025 1:19 PM [facility] LABTB2 Ag minus Nil0.05<0.35 IU/mL03/09/2025 1:19 PM [facility] LABTB WxzrwwYcbqhfxy82/17/2025 1:19 PM [facility] LABMitogen minus Nil>9.98>=0.50 IU/mL03/09/2025 1:19 PM [facility] LABTB Gamma InterpretationInfection with M. tuberculosis complex is unlikely. If latent tuberculosis infection is highly suspected, a negative result does not rule out the infection. Specimens from immunocompromised patients and those <5 years of age may show false negative results. In case of a contact investigation, please repeat 8-12 weeks after a known exposure.03/09/2025 1:19 PM [facility] LABSpecimen (Source)Anatomical Location / LateralityCollection Method / VolumeCollection TimeReceived TimeBloodBLOOD SPECIMEN / UnknownVenipuncture / Ldmqxvc1403/08/2025 8:37 AM EST03/08/2025 8:38 AM EST Narrative Authorizing ProviderResult TypeResult StatusMarsara Motta MDLABORATORYFinal ResultPerforming OrganizationAddressCity/State/ZIP CodePhone Number [facility] [address] [place] [address], * (ABNORMAL) VITAMIN D 25 HYDROXY (03/08/2025 8:37 AM EST)ComponentValueRef RangeTest MethodAnalysis TimePerformed AtPathologist SignatureVitamin D 25 Vqkvipw26.7(L)31.0 - 80.0 ng/mL03/08/2025 10:13 PM [facility] LABComment: Classification of 25 [place] Vitamin D status: Deficiency/Insufficiency: < or = 30 ng/ml. Sufficiency/Optimal Levels: 31-80 ng/mL Toxicity: > 100 ng/mL. Test performed by chemiluminescent immunoassay. Specimen (Source)Anatomical Location / LateralityCollection Method / Volume Collection TimeReceived TimeBloodBLOOD SPECIMEN / UnknownVenipuncture / Unknown 03/08/2025 8:37 AM EST03/08/2025 8:38 AM EST Narrative [facility] - 03/08/2025 10:13 PM EST The reference range interval was based on an analysis of samples from healthy adults and may not pertain to children from 0-18 years old. Authorizing ProviderResult TypeResult StatusYanely Motta MDLABORATORYFinal ResultPerforming OrganizationAddressCity/State/ZIP CodePhone Number [facility] [address] [place] [address], * VITAMIN B12 (03/08/2025 8:37 AM EST)ComponentValueRef RangeTest MethodAnalysis TimePerformed AtPathologist SignatureVitamin [id number] - 1,245 pg/mL 03/08/2025 6:17 PM [facility] LABSpecimen (Source)Anatomical Location / LateralityCollection Method / VolumeCollection TimeReceived Time BloodBLOOD SPECIMEN / UnknownVenipuncture / Jzcnuig5003/08/2025 8:37 AM EST 03/08/2025 8:38 AM EST Narrative Authorizing ProviderResult TypeResult StatusYanely Motta MDLABORATORYFinal ResultPerforming OrganizationAddressCity/State/ZIP CodePhone Number [facility] [address] [place] [address], * SEDIMENTATION RATE, WESTERGREN (03/08/2025 8:37 AM EST)ComponentValueRef Range Test MethodAnalysis TimePerformed AtPathologist SignatureSed Rate, Westergren2 0 - 20 mm/hr03/08/2025 3:28 PM [facility] LABSpecimen (Source) Anatomical Location / LateralityCollection Method / VolumeCollection Time Received TimeBloodBLOOD SPECIMEN / UnknownVenipuncture / Fsiaqvy9403/08/2025 8:37 AM EST03/08/2025 8:38 AM EST Narrative Authorizing ProviderResult TypeResult StatusYanely Motta MDLABORATORYFinal ResultPerforming OrganizationAddressCity/State/ZIP CodePhone Number [facility] [address] * COMPREHENSIVE METABOLIC PANEL (03/08/2025 8:37 AM EST)ComponentValueRef Range Test MethodAnalysis TimePerformed AtPathologist SignatureProtein, Total7.46.3 - 8.0 g/dL03/08/2025 6:04 PM [facility] LABAlbumin4.83.9 - 4.9 g/dL03/08/2025 6:04 PM [facility] LABCalcium, Total9.88.5 - 10.2 mg/dL03/08/2025 6:04 PM [facility] LABBilirubin, Total0.70.2 - 1.3 mg/dL03/08/2025 6:04 PM [facility] LABAlkaline Ovhvxxgrkds80 34 - 123 U/L105/09/2024 6:04 PM [facility] GYTGEQ7956 - 35 U/L 03/08/2025 6:04 PM [facility] BKUGOR9820 - 35 U/L105/09/2024 6:04 PM [facility] CVCKqhpiie2653 - 99 mg/dL03/08/2025 6:04 PM [facility] LABComment: The Citizen [place] Diabetes Association (ADA) provides guidance for cutoff values for fasting glucose andrandom glucose. The ADA defines fasting as no caloric intake for at least 8 hours. Fasting plasma glucose results between 100 to 125 mg/dL indicate increased risk for diabetes (prediabetes). Fasting plasma glucose results greater than or equal to 126 mg/dL meet the criteria for diagnosis of diabetes. In the absence of unequivocal hyperglycemia, results should be confirmed by repeat testing. In a patient with classic symptoms of hyperglycemia or hyperglycemic crisis, random plasma glucose results greater than or equal to 200 mg/dL meet the criteria for diagnosis of diabetes. Reference: Standards of Medical Care in Diabetes 2016, Citizen [place] Diabetes Association. Diabetes Care. 2016.39(Suppl 1). BUN97 - 21 mg/dL03/08/2025 6:04 PM [facility] LABCreatinine0.68 0.58 - 0.96 mg/dL03/08/2025 6:04 PM [facility] URFDxzees812845 - 144 mmol/L105/09/2024 6:04 PM [facility] LABPotassium4.03.7 - 5.1 mmol/L105/09/2024 6:04 PM [facility] IQHIjatuqsr45942 - 107 mmol/L 03/08/2025 6:04 PM [facility] FOGIF20652 - 30 mmol/L105/09/2024 6:04 PM [facility] LABAnion Qrt251 - 15 mmol/L105/09/2024 6:04 PM [facility] LABEstimated Glomerular Filtration Cikr826>=60 mL/min/1.73m 03/08/2025 6:04 PM [facility] LABComment:Estimated Glomerular Filtration Rate (eGFR) is calculated using the 2020 CKD-EPI creatinine equation. This equation utilizes serum creatinine, sex, and age as parameters. The creatinine assay has traceable calibration to isotope dilution-mass spectrometry. Refer to KDIGO guidelines for clinical interpretation. In patients with unstable renal function, e.g. those with acute kidney injury, the eGFRmay not accurately reflect actual GFR.Specimen (Source)Anatomical Location / LateralityCollection Method / VolumeCollection TimeReceived TimeBloodBLOOD SPECIMEN / UnknownVenipuncture / Wtupukm8103/08/2025 8:37 AM EST03/08/2025 8:38 AM EST Narrative Authorizing ProviderResult TypeResult StatusMarsara Motta MDLABORATORYFinal ResultPerforming OrganizationAddressCity/State/ZIP CodePhone Number [facility] [address] * COMPLETE BLOOD COUNT (03/08/2025 8:37 AM EST)ComponentValueRef RangeTest MethodAnalysis TimePerformed AtPathologist SignatureWBC8.093.70 - 11.00 k/uL 03/08/2025 2:11 PM [facility] LABRBC4.823.90 - 5.20 m/uL 03/08/2025 2:11 PM [facility] PKLDyucagydnz60.011.5 - 15.5 g/dL 03/08/2025 2:11 PM [facility] FIDVslookytjp61.036.0 - 46.0 % 03/08/2025 2:11 PM [facility] RNHJJA75.380.0 - 100.0 fL 03/08/2025 2:11 PM [facility] MIAHQO62.026.0 - 34.0 pg03/08/2025 2:11 PM [facility] BAOHKIZ43.830.5 - 36.0 g/dL03/08/2025 2:11 PM [facility] LABRDW-CV13.111.5 - 15.0 %03/08/2025 2:11 PM [facility] LABPlatelet Xplul220780 - 400 k/uL03/08/2025 2:[address] [facility] LABMPV9.99.0 - 12.7 fL03/08/2025 2:11 PM [facility] LABAbsolute nRBC<0.01<0.01 k/uL03/08/2025 2:11 PM [facility] LABSpecimen (Source)Anatomical Location / LateralityCollection Method / VolumeCollection TimeReceived TimeBloodBLOOD SPECIMEN / Unknown Venipuncture / Kvlbqrk4503/08/2025 8:37 AM EST03/08/2025 8:38 AM EST Narrative Authorizing ProviderResult TypeResult StatusYanely Motta MDLABORATORYFinal ResultPerforming OrganizationAddressCity/State/ZIP CodePhone Number [facility] [address] * C-REACTIVE PROTEIN (03/08/2025 8:37 AM EST)ComponentValueRef RangeTest Method Analysis TimePerformed AtPathologist SignatureCRP0.5<0.9 mg/dL03/08/2025 6:[address] [facility] LABSpecimen (Source)Anatomical Location / LateralityCollection Method / VolumeCollection TimeReceived TimeBloodBLOOD SPECIMEN / UnknownVenipuncture / Sywxxti2603/08/2025 8:37 AM EST03/08/2025 8:38 AM EST Narrative Authorizing ProviderResult TypeResult StatusYanely Motta MDLABORATORYFinal ResultPerforming OrganizationAddressCity/State/ZIP CodePhone Number [facility] [address] [place] [address], * HEPATITIS C ANTIBODY IA WITH CONFIRMATION (06/02/2023 7:40 AM EDT)Component ValueRef RangeTest MethodAnalysis TimePerformed AtPathologist SignatureHep C Antibody JNWhunwcfvBxenphjh41/11/2024 4:26 PM [facility] LABComment:The result suggests no evidence of active infection with Hepatitis C virus. Should recent infectionbe suspected, repeat testing may be considered 4-6 weeks after this draw.Specimen (Source)Anatomical Location / Laterality Collection Method / VolumeCollection TimeReceived TimeBloodBLOOD SPECIMEN / UnknownVenipuncture / Ucrupjo4706/02/2023 7:40 AM EDT06/02/2023 7:41 AM EDT Narrative Authorizing ProviderResult TypeResult StatusYanely Motta MDLABORATORYFinal ResultPerforming OrganizationAddressCity/State/ZIP CodePhone Number [facility] [address] [facility] [address] * HIV 1,2 COMBO (AG/AB) (08/09/2015 11:31 AM EDT)ComponentValueRef RangeTest MethodAnalysis TimePerformed AtPathologist SignatureHIV 12 Combo (Ag/Ab)Non ReactiveNon Cddrtsqu38/18/2016 5:49 PM EDTCSOUTHERN [facility] Comment: (NOTE) HIV Information: ??[place] Rev. Code 3701.243(E): This information has been disclosed to you from confidential records protected from disclosure by state law. You shall make no further disclosure of this information without the specific, written, and informed release of the individual to whom it pertains, or as otherwise permitted by state law. A general authorization for the release of medical or other information is not sufficient for the purpose of the release of HIV test results or diagnoses. Specimen (Source)Anatomical Location / LateralityCollection Method / Volume Collection TimeReceived TimeBlood specimen (specimen)BLOOD SPECIMEN / Unknown 08/09/2015 11:31 AM EDT08/09/2015 11:33 AM EDT Narrative Authorizing ProviderResult TypeResult StatusScott Quita DOLABORATORYFinal Result Performing OrganizationAddressCity/State/ZIP CodePhone Number [facility] [address] [place] [address] from Last 3 Months or Most Recently Relevant to Health Maintenance Insurance Care Teams Team MemberRelationshipSpecialtyStart DateEnd Bailee Riojas CNP [address] [place] [address] PCP - GeneralInternal Ktpldmxw20/9/20
--- OUTSIDE RECORDS SUMMARY | 2025-03-20 08:10 | XMS_ITS | Encounter Summary ---
Author Organization [facility] Address [address] [place] [address] Care Team Providers Care Human Resources Recruiter Name Role Phone Bailee Riojas CNP Primary Care Provider + Source Comments In the event this information is protected by the Federal Confidentiality of Alcohol and Drug AbusePatient Records regulations: The Federal rules restrict any use of the information to criminally investigate or prosecute any alcohol or drug abuse patient.[facility] Encounter Details DateTypeDepartmentCare Team (Latest Contact Info)Hncfpjlfuks71/15/2025 Get Medical Advice Rheumatology [address] [place] [address] Yanely Motta MD [address] [place], [place] [phone] Swollen left elbow Social History Tobacco UseTypesPacks/DayYears UsedDateSmoking Tobacco: FormerCigarettes Smokeless Tobacco: Never Comments:Vapes occasionally Alcohol UseStandard Drinks/WeekCommentsNo0 (1 standard drink = 0.6 oz pure alcohol)PHQ-2AnswerDate RecordedPHQ-2 znofl65404/22/2022rea Deprivation Index AnswerDate RecordedNational Score (1-100), lower number is lower risk83 11/30/2023State Score (1-10), lower number is lower [id number] from: https://www.neighborhoodatlas.[facility].edu/. Last address used for cwkozlq[address]gi[address]3CommentsNoSex and Gender Information ValueDate RecordedSex Assigned at BirthNot on fileLegal QdpLjvowj08/02/2012 8:57 AM ESTGender IdentityNot on fileSexual OrientationNot on fileOccupationIndustry Job Start DateJob End DateCookNot on fileNot on fileNot on filedocumented as of this encounter Miscellaneous Notes * Telephone Encounter - Florencio Burnham - 03/11/2025 12:19 PM EST Called twice Lm on VM (x2) and My Chart asking to call and schedule VV in March Florencio Burnham March 11, 2025 12:19 PM * Telephone Encounter - Sherrell Limon MA - 03/10/2025 9:56 AM EST Pt has been notified via [employer]. Not seen since 2023. [facility] (VIRTUAL/PHONE ONLY). 04/09/25 and 04/2025 open Thank you. * Telephone Encounter - Yanely Motta MD - 03/09/2025 5:47 PM EST Not seen since 2023. [facility] (VIRTUAL/PHONE ONLY). 04/09/25 and 04/2025 open Thank you. Please Call patient if MyChart note not read to review results/released to My Chart if tests completed at [facility]: Improved/Low vitamin D maybe associated with fatigue/joint/muscle pain. restart and stay on vitamin D script with food. Rest of labs stable and no inflammation. New script sent to pharmacy. Notify office if medication change is not tolerated. Recheck nonfasting labs in 3months, orders have been placed. Please schedule follow up visit. Happy to further review and discuss at follow up visit. Thank you. 03/08/25 low vitamin D 27.7;normal cbc, cmp, esr 2, crp 0.5, vitamin b12- 450;negative quantiferon tb; 03/08/24 low hgb 10.8, vitamin D 24.1;normal rest of cbc, cmp, esr 12, crp 0.5; 06/02/23 high plts 449, crp 1, alkaline phosphatase 129;low vitamin D 27.1;normal rest of cbc, cmp, esr 15;negative hepatitis panel quantiferon tb; Patient's request for medication is as follows: Requested Prescriptions Signed Prescriptions Disp Refills predniSONE (DELTASONE) 5 mg tablet 21 tablet 3 Sig: Day 1=6tabs with food, Day 2=5tabs, Day 3=4tabs, Day 4=3tabs, Day 5=2tabs, then take 1-2tabs daily thereafter, No NSAIDs on med ergocalciferol 50,000 unit capsule (VITAMIN D2, DRISDOL) 24 capsule 1 Sig: (take 1cap by mouth with food twice a week, ONE CAPSULE ON FRIDAY AND ONE ON FRIDAY) FOR A TOTAL OF 10 WEEKS.then once a week thereafter. Prescription(s) as above. Please process accordingly. Yanely Motta MD * Telephone Encounter - Aggie Fishman RN - 03/09/2025 8:09 AM EST Called pt , notified on VM that requested prescription was sent to pharmacy. * Telephone Encounter - Yanely Motta MD - 03/08/2025 5:27 PM EST Please call patient. Thank you for the update. So sorry to hear about your discomfort. Placed orders for medication refill. Office will be happy to assist with scheduling a follow up visit. Hope you feel better soon and Best wishes on a speedy recovery! Warm regards, :) Patient's request for medication is as follows: Requested Prescriptions Signed Prescriptions Disp Refills predniSONE (DELTASONE) 5 mg tablet 21 tablet 3 Sig: Day 1=6tabs with food, Day 2=5tabs, Day 3=4tabs, Day 4=3tabs, Day 5=2tabs, then take 1-2tabs daily thereafter, No NSAIDs on med Prescription(s) as above. Please process accordingly. Yanely Motta MD * Telephone Encounter - Aggie Fishman RN - 03/08/2025 8:14 AM EST Most recent Rheumatology visit: 06/02/2023 (with Yanely [...] Upcoming Rheumatology Appointments - Next 365 Days No appointments to display Last Ophthalmology Check for Plaquenil (Hydroxychloroquine) Last [...] (Final result) Narrative: Date of Procedure 07/02/2021. Scheduling Clerk Information Medical Transcription Radiology: sp. Reliability Right Eye Good. Left Eye Good. Interpretation Right Eye Normal. Left Eye Normal. Interval Change Right Eye Initial. Left Eye Initial. CBC: None on file in the last 6 months Vitamin D: None on file in the last 6 months LFT: None on file in the last 6 months Hepatic Function: Creatinine: None on file in the last 6 months ESR/CRP: None on file in the last 6 months Uric Acid: None on file in the last 6 months Open Standing (Multiple Instance) Lab Orders None Open Future (Single Instance) Lab Orders Expected Expires Ordered COMPREHENSIVE METABOLIC PANEL [SQCMP] 06/11/24 03/13/25 03/13/24 Auth. provider: Yanely Motta MD Assoc. diagnoses: Elevated LFTs COMPLETE BLOOD COUNT [SQCBC] 06/11/24 03/13/25 03/13/24 Auth. provider: Yanely Motta MD Assoc. diagnoses: Anemia of chronic disease SEDIMENTATION RATE, WESTERGREN [SQWSR] 06/11/24 03/13/25 03/13/24 Auth. provider: Yanely Motta MD Assoc. diagnoses: Elevated sed rate, Elevated C-reactive protein (CRP) C-REACTIVE PROTEIN [SQCRP] 06/11/24 03/13/25 03/13/24 Auth. provider: Yanely Motta MD Assoc. diagnoses: Elevated sed rate, Elevated C-reactive protein (CRP) VITAMIN D 25 HYDROXY [SQVITD] 06/11/24 03/13/25 03/13/24 Auth. provider: Yanely Motta MD Assoc. diagnoses: Vitamin D deficiency VITAMIN B12 [SQB12] 06/11/24 03/13/25 03/13/24 Auth. provider: Yanely Motta MD Assoc. diagnoses: Vitamin B12 deficiency BLOOD TB SCREEN [SQINFTBP] 06/11/24 03/13/25 03/13/24 Auth. provider: Yanely Motta MD Assoc. diagnoses: Screening-pulmonary TB documented in this encounter Plan of Treatment DateTypeDepartmentCare Team (Latest Contact Info)Fcapkialvfy43/17/2026 11:40 AM ESTDistance Health Rheumatology [address] [place], [place] [phone] Yanely Motta MD [address] [facility] [place] [address] fu RA familial mediterrean fever elbow is owmyeqq4006/07/2025 4:00 PM EDTResults Only [place] [facility] [address] [place] [address] LABSNameTypePriorityAssociated DiagnosesOrder ScheduleCOMPREHENSIVE METABOLIC PANELLabRoutine Elevated LFTs Expected: 06/07/2025 (Approximate), Expires: 03/09/2026OMPLETE BLOOD COUNTLab Routine Anemia of chronic disease Expected: 06/07/2025 (Approximate), Expires: 03/09/2026SEDIMENTATION RATELab Routine Elevated sed rate Elevated C-reactive protein (CRP) Expected: 06/07/2025 (Approximate), Expires: 03/09/2026-REACTIVE PROTEINLab Routine Elevated sed rate Elevated C-reactive protein (CRP) Expected: 06/07/2025 (Approximate), Expires: 03/09/2026VITAMIN D 25 HYDROXYLab Routine Vitamin D deficiency Expected: 06/07/2025 (Approximate), Expires: 03/09/2026documented as of this encounter Visit Diagnoses Diagnosis Rheumatoid arthritis of multiple sites with negative rheumatoid factor (HCC)- Primary Inflammatory arthritis Unspecified inflammatory polyarthropathy Vitamin D deficiency Unspecified vitamin D deficiency Elevated LFTs Other abnormal blood chemistry Anemia of chronic disease Anemia of other chronic disease Elevated sed rate Elevated sedimentation rate Elevated C-reactive protein (CRP) documented in this encounter Care Teams Team MemberRelationshipSpecialtyStart DateEnd Date Bailee Riojas CNP [address] [place] [address] PCP - GeneralInternal Vrufpcyo34/9/20documented as of this encounter
--- OUTSIDE RECORDS SUMMARY | 2025-03-20 08:10 | XMS_ITS | Encounter Summary ---
Author Organization [facility] Address [address] [place] [address] Care Team Providers Care Assembler Production Line Name Role Phone Bailee Riojas CNP Primary Care Provider + Source Comments In the event this information is protected by the Federal Confidentiality of Alcohol and Drug AbusePatient Records regulations: The Federal rules restrict any use of the information to criminally investigate or prosecute any alcohol or drug abuse patient.[facility] Reason for Visit * ReasonCommentsResults Encounter Details DateTypeDepartmentCare Team (Latest Contact Info)Odudttuslce94/21/2024Telephone Rheumatology [address] [place], [place] [phone] Yanely Motta MD [address] [place] [address] Results Social History Tobacco UseTypesPacks/DayYears UsedDateSmoking Tobacco: FormerCigarettes Smokeless Tobacco: Never Comments:Vapes occasionally Alcohol UseStandard Drinks/WeekCommentsNo0 (1 standard drink = 0.6 oz pure alcohol)PHQ-2AnswerDate RecordedPHQ-2 xdjhh98204/22/2022rea Deprivation Index AnswerDate RecordedNational Score (1-100), lower number is lower risk83 02/20/2023State Score (1-10), lower number is lower [id number] from: https://www.neighborhoodatlas.medicine.[facility].edu/. Last address used for tbwwderaahn[address]3CommentsNoSex and Gender Information ValueDate RecordedSex Assigned at BirthNot on fileLegal VxeEaozxz11/02/2012 8:57 AM ESTGender IdentityNot on fileSexual OrientationNot on fileOccupationIndustry Job Start DateJob End DateCookNot on fileNot on fileNot on filedocumented as of this encounter Miscellaneous Notes * Telephone Encounter - Yanely Motta MD - 03/09/2025 5:53 PM EST For chart Please Call patient if Tailwindt note not read to review results/released to [...] cmp, esr 15;negative hepatitis panel quantiferon tb; * Telephone Encounter - De Maloney MA - 03/15/2024 7:43 AM EST patient has viewed the [employer] message per Epoch. * Telephone Encounter - Yanely Motta MD - 03/13/2024 5:54 PM EST Please Call patient if MyChart note not read to review results/released to My Chart if tests completed at [facility]: One mildly low normal hemoglobin- will monitor with primary care provider. Low vitamin D maybe associated with fatigue/joint/muscle pain. Start and stay on vitamin D script with food. Rest of labs stable and no inflammation. New scripts sent to pharmacy. Defer paxil refill to primary care provider. Notify office if medication change is not tolerated. Recheck nonfasting labs in 3months, orders have been placed. Happy to further review and discuss at follow up visit. Thank you. 03/08/24 low hgb 10.8, vitamin D 24.1;normal rest of cbc, cmp, esr 12, crp 0.5; 06/02/23 high plts 449, crp 1, alkaline phosphatase 129;low vitamin D 27.1;normal rest of cbc, cmp, esr 15;negative hepatitis panel quantiferon tb; Patient's request for medication is as follows: Requested Prescriptions Signed Prescriptions Disp Refills ergocalciferol 50,000 unit capsule (VITAMIN D2, DRISDOL) 20 capsule 1 Sig: (take by mouth with food twice a week, ONE CAPSULE ON FRIDAY AND ONE ON FRIDAY) FOR A TOTAL OF 8 WEEKS.then once a week thereafter. Authorizing Provider: YANELY MOTTA Prescription(s) as above. Please process accordingly. Yanely Motta MD documented in this encounter Plan of Treatment DateTypeDepartmentCare Team (Latest Contact Info)Zjykrykqxtb12/17/2026 11:40 AM ESTC[facility] [address] [place] [address] Yanely Motta MD [address] [place], [place] [phone] fu RA familial mediterrean fever elbow is psvublz5506/07/2025 4:00 PM EDTResults Only [place] [facility] Laboratory [address] [place] [address] LABSdocumented as of this encounter Results * BLOOD TB SCREEN (03/08/2025 8:37 AM EST)ComponentValueRef RangeTest Method Analysis TimePerformed AtPathologist SignatureTB Nil0.02<=8.00 IU/mL03/09/2025 1:19 PM [facility] LABTB1 Ag minus Nil0.05<0.35 IU/mL03/09/2025 1:19 PM [facility] LABTB2 Ag minus Nil0.05<0.35 IU/mL03/09/2025 1:19 PM [facility] LABTB XreclzJymunzoa85/17/2025 1:19 PM EST [facility] LABMitogen minus Nil>9.98>=0.50 IU/mL03/09/2025 1:19 PM [facility] LABTB Gamma InterpretationInfection with M. tuberculosis complex is unlikely. If latent tuberculosis infection is highly suspected, a negative result does not rule out the infection. Specimens from immunocompromised patients and those <5 years of age may show false negative results. In case of a contact investigation, please repeat 8-12 weeks after a known exposure.03/09/2025 1:19 PM [facility] LABSpecimen (Source)Anatomical Location / LateralityCollection Method / VolumeCollection TimeReceived TimeBloodBLOOD SPECIMEN / UnknownVenipuncture / Hzrrpsq3303/08/2025 8:37 AM EST03/08/2025 8:38 AM EST Narrative Authorizing ProviderResult TypeResult StatusYanely Motta MDLABORATORYFinal ResultPerforming OrganizationAddressCity/State/ZIP CodePhone Number [facility] [address] * VITAMIN B12 (03/08/2025 8:37 AM EST)ComponentValueRef RangeTest MethodAnalysis TimePerformed AtPathologist SignatureVitamin [id number] - 1,245 pg/mL03/08/2025 6:17 PM [facility] LABSpecimen (Source)Anatomical Location / LateralityCollection Method / VolumeCollection TimeReceived TimeBloodBLOOD SPECIMEN / UnknownVenipuncture / Ncvhwek5803/08/2025 8:37 AM EST03/08/2025 8:38 AM EST Narrative Authorizing ProviderResult TypeResult StatusYanely Gellerclark FRIASLABORATORYFinal ResultPerforming OrganizationAddressCity/State/ZIP CodePhone Number [facility] [address] [place] [address], * (ABNORMAL) VITAMIN D 25 HYDROXY (03/08/2025 8:37 AM EST)ComponentValueRef RangeTest MethodAnalysis TimePerformed AtPathologist SignatureVitamin D 25 Qnqunyf36.7(L)31.0 - 80.0 ng/mL03/08/2025 10:13 PM [facility] LABComment: Classification of 25 [place] Vitamin D status: Deficiency/Insufficiency: < or = 30 ng/ml. Sufficiency/Optimal Levels: 31-80 ng/mL Toxicity: > 100 ng/mL. Test performed by chemiluminescent immunoassay. Specimen (Source)Anatomical Location / LateralityCollection Method / Volume Collection TimeReceived TimeBloodBLOOD SPECIMEN / UnknownVenipuncture / Unknown 03/08/2025 8:37 AM EST03/08/2025 8:38 AM EST Narrative [facility] - 03/08/2025 10:13 PM EST The reference range interval was based on an analysis of samples from healthy adults and may not pertain to children from 0-18 years old. Authorizing ProviderResult TypeResult StatusGrahamisabelle eGllerclark FRIASLABORATORYFinal ResultPerforming OrganizationAddressCity/State/ZIP CodePhone Number [facility] [address] [place] [address], * C-REACTIVE PROTEIN (03/08/2025 8:37 AM EST)ComponentValueRef RangeTest Method Analysis TimePerformed AtPathologist SignatureCRP0.5<0.9 mg/dL03/08/2025 6:58 PM [facility] LABSpecimen (Source)Anatomical Location / LateralityCollection Method / VolumeCollection TimeReceived TimeBloodBLOOD SPECIMEN / UnknownVenipuncture / Gexuots1803/08/2025 8:37 AM EST03/08/2025 8:38 AM EST Narrative Authorizing ProviderResult TypeResult StatusYanely Ángela MDLABORATORYFinal ResultPerforming OrganizationAddressCity/State/ZIP CodePhone Number [facility] [address] [place] [address], [place] * SEDIMENTATION RATE, WESTERGREN (03/08/2025 8:37 AM EST)ComponentValueRef Range Test MethodAnalysis TimePerformed AtPathologist SignatureSed Rate, Westergren2 0 - 20 mm/hr03/08/2025 3:28 PM [facility] LABSpecimen (Source) Anatomical Location / LateralityCollection Method / VolumeCollection Time Received TimeBloodBLOOD SPECIMEN / UnknownVenipuncture / Hyqmuhl1703/08/2025 8:37 AM EST03/08/2025 8:38 AM EST Narrative Authorizing ProviderResult TypeResult StatusYanely Motta MDLABORATORYFinal ResultPerforming OrganizationAddressCity/State/ZIP CodePhone Number [facility] [address] * COMPLETE BLOOD COUNT (03/08/2025 8:37 AM EST)ComponentValueRef RangeTest MethodAnalysis TimePerformed AtPathologist SignatureWBC8.093.70 - 11.00 k/uL 03/08/2025 2:11 PM [facility] LABRBC4.823.90 - 5.20 m/uL 03/08/2025 2:11 PM [facility] NWGDgbhaarwuu06.011.5 - 15.5 g/dL 03/08/2025 2:11 PM [facility] ZBOYyzqzgbvfh41.036.0 - 46.0 % 03/08/2025 2:11 PM [facility] DWLVCI30.380.0 - 100.0 fL 03/08/2025 2:11 PM [facility] NAZGPL49.026.0 - 34.0 pg03/08/2025 2:11 PM [facility] LUZMFHC32.830.5 - 36.0 g/dL03/08/2025 2:11 PM [facility] LABRDW-CV13.111.5 - 15.0 %03/08/2025 2:11 PM [facility] LABPlatelet Qvrdn396413 - 400 k/uL03/08/2025 2:11 PM [facility] LABMPV9.99.0 - 12.7 fL03/08/2025 2:11 PM [facility] LABAbsolute nRBC<0.01<0.01 k/uL03/08/2025 2:11 PM [facility] LABSpecimen (Source)Anatomical Location / LateralityCollection Method / VolumeCollection TimeReceived TimeBloodBLOOD SPECIMEN / Unknown Venipuncture / Xhkjlwb3803/08/2025 8:37 AM EST03/08/2025 8:38 AM EST Narrative Authorizing ProviderResult TypeResult StatusYanely Motta MDLABORATORYFinal ResultPerforming OrganizationAddressCity/State/ZIP CodePhone Number [facility] [address] * COMPREHENSIVE METABOLIC PANEL (03/08/2025 8:37 AM EST)ComponentValueRef Range Test MethodAnalysis TimePerformed AtPathologist SignatureProtein, Total7.46.3 - 8.0 g/dL03/08/2025 6:04 PM [facility] LABAlbumin4.83.9 - 4.9 g/dL03/08/2025 6:04 PM [facility] LABCalcium, Total9.88.5 - 10.2 mg/dL03/08/2025 6:04 PM [facility] LABBilirubin, Total0.70.2 - 1.3 mg/dL03/08/2025 6:04 PM [facility] LABAlkaline Hhziezgaxke04 34 - 123 U/L105/09/2024 6:04 PM [facility] WKJLCC6129 - 35 U/L 03/08/2025 6:04 PM [facility] PEEYJC5028 - 35 U/L105/09/2024 6:04 PM [facility] QIEZdnydnq6778 - 99 mg/dL03/08/2025 6:04 PM [facility] LABComment: The [place] Diabetes Association (ADA) provides guidance for cutoff [...] Standards of Medical Care in Diabetes 2016, [place] Diabetes Association. Diabetes Care. 2016.39(Suppl 1). BUN97 - 21 mg/dL03/08/2025 6:04 PM [facility] LABCreatinine0.68 0.58 - 0.96 mg/dL03/08/2025 6:04 PM [facility] RASEvqlfe650928 - 144 mmol/L105/09/2024 6:04 PM [facility] LABPotassium4.03.7 - 5.1 mmol/L105/09/2024 6:04 PM [facility] NBZRhnaohsh62190 - 107 mmol/L 03/08/2025 6:04 PM [facility] GKCAH14818 - 30 mmol/L105/09/2024 6:04 PM [facility] LABAnion Xwm640 - 15 mmol/L105/09/2024 6:04 PM [facility] LABEstimated Glomerular Filtration Txpe781>=60 mL/min/1.73m 03/08/2025 6:04 PM [facility] LABComment:Estimated Glomerular Filtration Rate (eGFR) is calculated [...] VolumeCollection TimeReceived TimeBloodBLOOD SPECIMEN / UnknownVenipuncture / Fkqrljq5003/08/2025 8:37 AM EST03/08/2025 8:38 AM EST Narrative Authorizing ProviderResult TypeResult StatusYanely Motta MDLABORATORYFinal ResultPerforming OrganizationAddressCity/State/ZIP CodePhone Number [facility] [address] documented in this encounter Visit Diagnoses Diagnosis Rheumatoid arthritis of multiple sites with negative rheumatoid factor (HCC)- Primary Elevated LFTs Other abnormal blood chemistry Anemia of chronic disease Anemia of other chronic disease Elevated sed rate Elevated sedimentation rate Elevated C-reactive protein (CRP) Vitamin D deficiency Unspecified vitamin D deficiency Vitamin B12 deficiency Other B-complex deficiencies Screening-pulmonary TB Screening examination for pulmonary tuberculosis documented in this encounter Care Teams Team MemberRelationshipSpecialtyStart DateEnd Date Bailee Riojas, RONAN [address] [place] [address] PCP - GeneralInternal Oidgtnto41/9/20documented as of this encounter
--- OUTSIDE RECORDS SUMMARY | 2025-03-20 08:10 | XMS_ITS | Clinical Summary ---
Author Organization [facility] Address [address] [place] [address] Care Team Providers Care Biochemistry Specialist Name Role Phone Unavailable Primary Care Provider Unavailabl e Allergies Active AllergyReactionsCriticalityNoted SzjnXqqtneugMizrldytufu26/24/2012 Other Reaction(s): Vomiting Medications MedicationSigDispense QuantityRefillsLast FilledStart DateEnd DateStatus PARoxetine (Paxil) 20 MG tablet 5Active LORazepam (Ativan) 0.5 MG tablet Take by mouthActive desogestrel-ethinyl estradiol (Apri) 0.15-30 MG-MCG tablet Indications:Perimenopause,Night sweatsTake 1 tablet by mouth Daily 28 tablet 121516Active Active Problems ProblemNoted DateDiagnosed DateBacterial fxxkcqyoh18/21/2024Encounter for biopsy 06/12/2023Menorrhagia with regular cycle06/12/2023 Encounters DateTypeDepartmentCare KauxFyfoabafkvp70/11/2025 11:10 AM ESTOffice Visit [facility]EL[facility] HAR[facility] [address] [place] [address] [place] [phone] Jovanny Quick DO Perimenopause; Night sweats; Mood swings; Decreased libido; PCOS (polycystic ovarian syndrome)02/01/2025amboo flowsheet NOMJay HARRELL [address] [place] [phone] Jovanny Quick DO 02/01/20251689Rvtyzj50/13/2025Travelfrom Last 3 Months Family History Medical HistoryRelationNameCommentsDepressionMotherHypertensionMother OsteoarthritisMotherRelationNameStatusCommentsMother Social History Tobacco UseTypesPacks/DayYears UsedDateSmoking Tobacco: Never Tobacco Cessation:Counseling Given: Not Answered CommentsNoSex and Gender InformationValueDate RecordedSex Assigned at KecrzSnvhgs70/06/2024 4:48 PM ESTLegal VthFenxca10/15/2023 7:15 PM EDTGender AnrhfpqsSodrno34/06/2024 4:48 PM ESTSexual RcbwpvlbrvhAuiwfcoh85/06/2024 4:48 PM EST Last Filed Vital Signs Vital SignReadingTime TakenCommentsBlood Sweywdto530/7002/01/2025 11:28 AM EST Racna46812/06/2025 3:51 PM CJEPjswugembbf18.6 ??C (97.8 ??F)04/29/2024 3:51 PM ESTRespiratory Rate--Oxygen Lmxrrjhfxn09%04/29/2024 3:51 PM ESTInhaled Oxygen Concentration--Dyoosr14 kg (141 lb)02/01/2025 11:28 AM AERPcuedg393.5 cm (5' 2 ) 06/18/2023 2:43 PM EDTBody Mass Index25.7906/18/2023 2:43 PM EDT Plan of Treatment Not on file Insurance
--- NOTE | 2025-03-20 08:23 | ECG_ITS ---
[facility] Test Date: 2025-03-20 Pat Name: VAL TAY Department: Room: - Gender: Female Production Tester: : 1985 Requested By: [id number] Order Number: [id number] Myles MD: CELSO MCCRARY M.D. Measurements Intervals Carroll Rate: 113 P: 62 NJ: 124 QRS: 72 QRSD: 68 T: 48 QT: 306 QTc: 373 Interpretive Statements 1120 Sinus tachycardia [address] depression [address] & Twave abnormality 9150 abnormal ECG Compared to ECG 06/02/2018 14:11:20 ST (T wave) deviation now present Sinus rhythm no longer present Short NJ interval no longer present Electronically Signed On 03-20-2025 13:33:07 EST by CELSO MCCRARY M.D.
--- NOTE | 2025-03-20 08:23 | ED.GENADUL1 ---
HPI HPI - General Adult General Chief complaint: Upper Respiratory Infection Stated complaint: COUGH, CHEST PAIN, RUNNY NOSE Time Seen by Provider: 03/20/25 07:40 Source: patient Mode of arrival: walk-in History of Present Illness HPI narrative: Patient is a healthy 39-year-old female presenting to the emergency department for evaluation of flulike symptoms. Patient has been ill with cough, congestion, nausea, fatigue, and myalgias for the last 3 days. 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 She denies asthma or other pulmonary conditions. She denies fevers. No vomiting. Tolerating p.o. Has been trying vitamin B, vitamin D, Mucinex, and DayQuil with some relief of her symptoms. Related Data Home Medications ?Medication ?Instructions ?Recorded ?Confirmed desogestrel 0.15 mg-ethinyl 1 tab PO DAILY 03/20/25 03/20/25 estradiol 0.03 mg tablet (Apri) Held on 03/20/25. Instructions: hasnt started taking yet ferrous sulfate 325 mg (65 mg mg 03/20/25 iron) tablet (FeroSul) prednisone 5 mg tablet mg 03/20/25 trazodone 50 mg tablet mg 03/20/25 Allergies Allergy/AdvReac Type Severity Reaction Status Date / Time No Known Drug Allergies Allergy Verified 03/20/25 07:44 Review of Systems ROS Status of ROS 10 or more systems reviewed and unremarkable except as noted in history and below PFSH PFSH Social History Little interest or pleasure in doing things: not at all Feeling down, depressed, or hopeless: not at all Exam Narrative Exam Narrative: CONSTITUTIONAL: She appears ill, but nontoxic. Persistently coughing, nontoxic answering questions and following commands appropriately SKIN: Was warm and dry. EYES: Sclerae white. EARS, NOSE, THROAT: Moist oral mucosa. Clear rhinorrhea. RESPIRATORY: Clear to auscultation bilaterally, no wheezes, crackles, or stridor, no use of accessory muscles CARDIOVASCULAR: Tachycardic rate and regular rhythm. There is no S3, S4, murmur, rub. GASTROINTESTINAL: Abdomen is nondistended. MUSCULOSKELETAL: No peripheral edema. NEUROLOGIC: Patient is awake and alert. Facies were symmetrical. Constitutional Vital Signs, click to edit/add: Last Vital Signs Temp 99.2 F 03/20/25 07:41 Pulse 115 H 03/20/25 07:50 Resp 16 03/20/25 07:50 BP 144/93 H 03/20/25 07:41 Pulse Ox 97 03/20/25 07:41 Course Vital Signs Vital signs: Vital Signs Temperature 99.2 F 03/20/25 07:41 Pulse Rate 139 H 03/20/25 07:41 Respiratory Rate 18 03/20/25 07:41 Blood Pressure 144/93 H 03/20/25 07:41 Pulse Oximetry 97 03/20/25 07:41 Temperature 99.2 F 03/20/25 07:41 Pulse Rate 115 H 03/20/25 07:50 Respiratory Rate 16 03/20/25 07:50 Blood Pressure 144/93 H 03/20/25 07:41 Pulse Oximetry 97 03/20/25 07:41 Medical Decision Making MDM Narrative Medical decision making narrative: Patient is a 39-year-old female with no chronic medical conditions presenting to the emergency department with a 3-day history of flulike symptoms. Vital signs were remarkable for mild tachycardia, otherwise within normal limits. She is afebrile and hemodynamically stable. She is saturating 97% on room air and in no respiratory distress. Triage 12 Lead EKG: Sinus tachycardia at a rate of [address] bpm[address] Normal axis[address] No ST segment elevations. QRS, WA, and QTc interval within normal limits. Final impression: Sinus tachycardia without evidence of acute myocardial ischemia or pericarditis. Differential diagnosis includes viral URI. I did consider pneumonia, however the patient has clear/equal breath sounds bilaterally, is not hypoxic, and overall looks non-toxic and well-hydrated. Viral swabs were positive for influenza A. I do believe the patient is stable for discharge. They were instructed to follow up with her PCP as needed. Return precautions were given including any new or worsening symptoms. Patient understands and agrees to the plan. FINAL IMPRESSION: #Acute influenza A infection DISPOSITION: Discharged home CONDITION: Good Lab Data Lab results reviewed: Yes I reviewed the patient's lab results Labs: Lab Results 03/20/25 Range/Units 07:49 Influenza Type A Ag Positive A Influenza Type B Ag Negative SARS-CoV-2 Ag (CV2AG) Negative (NEGATIVE) ECG Data Attestation: I personally reviewed and interpreted this ECG as follows: Discharge Plan Discharge Chief Complaint: Upper Respiratory Infection Clinical Impression: Influenza Patient Disposition: Home, Self-Care Time of Disposition Decision: 08:19 Condition: Good Mode of Transportation: Private Vehicle Prescriptions / Home Meds: No Action desogestrel-ethinyl estradiol [Apri] 0.15-0.03 mg tablet 1 tab PO DAILY trazodone 50 mg tablet prednisone 5 mg tablet ferrous sulfate [FeroSul] 325 mg (65 mg iron) tablet Print Language: Serbian Instructions: Influenza (ED) Referrals: KALYANI WILSON [Primary Care Provider, Family Practice] - 1 week
== END 2025-03-20 08:24 | disposition home or self-care (01) ==
PROVIDERS: Emergency Provider Student in an Organized Health Care Education/Training Program; PCP Nurse Practitioner Family
DX: J10.1 Influenza due to other identified influenza virus with other respiratory manifestations (principal); R00.0 Tachycardia, unspecified
CPT/HCPCS: 87804; 87811; 93005; 99283